=== PATIENT | male | born 1945 | race Caucasian/White ===

== ENCOUNTER 2016-07-29 17:34 | Inpatient (IN) | payer MEDICARE ==
[~2016-07-29] VITALS: Ht 174 cm; Wt 80.4 kg
[2016-07-29] MEDS ORDERED: IV NORMAL SALINE 1000ML BAG 1,000 ML IV SCH ×2 (17:48→19:12)
[2016-07-29] MEDS ORDERED: ASPIRIN 81 MG TAB.CHEW PO ONE (18:00)
--- NOTE | 2016-07-29 18:15 | PHYS DOC ---
Adult General Chief Complaint Chief Complaint: CHEST PAIN HPI HPI Patient is a 71 year old male who presents with complaint of chest pain. Patient states that his symptoms started approximately 18 hours ago in the middle of the night. Patient states that he is having substernal burning and pressure which she states feels like indigestion. Patient currently rates pain as 4 out of 10. Patient denies radiation of pain. Patient denies any nausea, shortness of breath, or diaphoresis associated with symptoms. The patient has a significant history of tobacco use and has history of hypertension. Patient follows a Dr. Velázquez for primary care. Patient presented to his office and was seen by a nurse practitioner who ordered blood work. The patient was called prior to arrival and was told that he had abnormal blood work. Per nursing report, the patient was found to have an abnormal troponin level of 0.3. Patient denies any previous history of myocardial infarction. Patient took 2 full strength aspirin after onset of symptoms at approximately 9:00 this morning. Review of Systems Review of Systems Constitutional: Denies fever or chills [] Eyes: Denies change in visual acuity, redness, or eye pain [] HENT: Denies nasal congestion or sore throat [] Respiratory: Denies cough or shortness of breath [] Cardiovascular: Chest pain, denies edema [] GI: Denies abdominal pain, nausea, vomiting, bloody stools or diarrhea [] : Denies dysuria or hematuria [] Musculoskeletal: Denies back pain or joint pain [] Integument: Denies rash or skin lesions [] Neurologic: Denies headache, focal weakness or sensory changes [] Current Medications Current Medications Current Medications Medications (Trade) Dose Ordered Sig/[facility] Start Time Stop Time Status Last Admin Dose Admin Acetaminophen (Tylenol) 650 mg PRN Q4HRS PRN 07/29/16 19:15 07/30/16 19:14 Aspirin 324 mg 324 mg 1X ONCE 07/29/16 18:00 07/29/16 18:19 DC Fentanyl Citrate 50 mcg 50 mcg PRN Q2HR PRN 07/29/16 19:15 07/30/16 19:14 Heparin Sodium (Porcine) 2000 unit 2,000 unit PRN Q6HRS PRN 07/29/16 19:15 Heparin Sodium (Porcine) 4000 unit 4,000 unit 1X ONCE 07/29/16 19:15 07/29/16 19:21 DC 07/29/16 19:34 4,000 UNIT Heparin Sodium/ Dextrose 500 ml @ 0 mls/hr CONT PRN 07/29/16 19:15 07/29/16 19:37 0 MLS/HR Nitroglycerin/ Dextrose (Nitroglycerin Drip) 250 ml @ 0 mls/hr CONT PRN 07/29/16 19:15 07/29/16 19:39 1.5 MLS/HR Ondansetron HCl (Zofran) 4 mg PRN Q8HRS PRN 07/29/16 19:15 07/30/16 19:14 Sodium Chloride (Iv Sodium Chloride 0.9% 1000ml Bag) 1,000 ml @ 125 mls/hr Q8H 07/29/16 19:12 07/30/16 19:11 Tirofiban/Sodium Chloride (Aggrastat 12.5 Mg/250 ml Premix) 250 ml @ 0 mls/hr CONT PRN 07/29/16 19:00 Allergies Allergies Allergies Coded Allergies Type Severity Reaction Last Updated Verified No Known Drug Allergies 07/29/16 No Physical Exam Physical Exam Constitutional: Alert, afebrile, no acute distress. [] HENT: Normocephalic, atraumatic, bilateral external ears normal, oropharynx moist, no oral exudates, nose normal. [] Eyes: PERRLA, EOMI, conjunctiva normal, no discharge. [] Neck: Normal range of motion, no tenderness, supple, no stridor. [] Cardiovascular:Heart rate regular rhythm, no murmur [] Lungs & Thorax: Bilateral breath sounds clear to auscultation [] Abdomen: Bowel sounds normal, soft, no tenderness, no masses, no pulsatile masses. [] Skin: Warm, dry, no erythema, no rash. [] Back: No tenderness, no CVA tenderness. [] Extremities: No tenderness, no cyanosis, no clubbing, ROM intact, no edema. [] Neurologic: Alert and oriented X 3, normal motor function, normal sensory function, no focal deficits noted. [] Current Patient Data Vital Signs Vital Signs Date Time Temp Pulse Resp B/P Pulse Ox O2 Delivery O2 Flow Rate FiO2 07/29/16 17:45 98.7 55 18 164/82 98 Room Air 98.7 Lab Values Laboratory Tests Test 3/6/17 18:14 White Blood Count 12.0x10^3/uL (4.0-11.0) H Red Blood Count 4.45x10^6/uL (4.30-5.70) Hemoglobin 14.3g/dL (13.0-17.5) Hematocrit 42.8% (39.0-53.0) Mean Corpuscular Volume 96fL (79-100) Mean Corpuscular Hemoglobin 32pg (25-35) Mean Corpuscular Hemoglobin Concent 33g/dL (31-37) Red Cell Distribution Width 14.2% (11.5-14.5) Platelet Count 231x10^3/uL (140-400) Neutrophils (%) (Auto) 75% (31-73) H Lymphocytes (%) (Auto) 16% (24-48) L Monocytes (%) (Auto) 8% (0-9) Eosinophils (%) (Auto) 0% (0-3) Basophils (%) (Auto) 1% (0-3) Neutrophils # (Auto) 9.0x10^3uL (1.8-7.7) H Lymphocytes # (Auto) 1.9x10^3/uL (1.0-4.8) Monocytes # (Auto) 0.9x10^3/uL (0.0-1.1) Eosinophils # (Auto) 0.0x10^3/uL (0.0-0.7) Basophils # (Auto) 0.1x10^3/uL (0.0-0.2) Sodium Level 136mmol/L (136-145) Potassium Level 4.7mmol/L (3.5-5.1) Chloride Level 100mmol/L (98-107) Carbon Dioxide Level 26mmol/L (21-32) Anion Gap 10 (6-14) Blood Urea Nitrogen 21mg/dL (8-26) Creatinine 1.1mg/dL (0.7-1.3) Estimated GFR (Cockcroft-Gault) 66.2 Glucose Level 126mg/dL (70-99) H Calcium Level 9.6mg/dL (8.5-10.1) Magnesium Level 1.7mg/dL (1.8-2.4) L Total Bilirubin 0.4mg/dL (0.2-1.0) Direct Bilirubin 0.1mg/dL (0.0-0.2) Aspartate Amino Transferase (AST) 143U/L (15-37) H Alanine Aminotransferase (ALT) 32U/L (16-63) Alkaline Phosphatase 50U/L (46-116) Creatine Kinase 741U/L (39-308) H Creatine Kinase MB (Mass) 38.3ng/mL (0.0-3.6) H Creatine Kinase MB Relative Index 5.2% (0-4) H Troponin I Quantitative 41.668ng/mL (0.000-0.055) UC-Gis-L-Type Natriuretic Peptide 2203pg/mL (0-124) H Total Protein 7.2g/dL (6.4-8.2) Albumin 3.4g/dL (3.4-5.0) Laboratory Tests 07/29/16 18:14 Laboratory Tests 07/29/16 18:14 EKG EKG Interpreted by me: Heart rate 50, sinus rate cardiac, normal intervals, normal axis, T-wave inversions in the inferior leads and in V5 and V6, no acute ST elevations or depressions. [] Radiology/Procedures Radiology/Procedures One view AP chest x-ray interpreted by me: No infiltrates, no effusions, normal cardiac silhouette [] Course & Med Decision Making Course & Med Decision Making Pertinent Labs and Imaging studies reviewed. (See chart for details) Patient found to have a significantly elevated troponin level of 41. The patient has suffered a non-ST elevation myocardial infarction. I consult to Dr. Devi of cardiology who recommended that the patient be started on IV infusions of Aggrastat, heparin, and nitroglycerin which was initiated in the emergency department. The patient will be admitted to ICU for further care. I spoke with Dr. Browning who is on-call for Dr. Velázquez and he accepted care patient in hospital. Critical care time excluding procedures: 45 minutes Dragon Disclaimer Dragon Disclaimer This electronic medical record was generated, in whole or in part, using a voice recognition dictation system. Departure Departure Impression: Primary Impression: NSTEMI (non-ST elevated myocardial infarction) Disposition: 09 ADMITTED INPATIENT Admitting Physician: Brandon Velázquez Condition: GUARDED RENO MACKENZIE MD Jul 29, 2016 18:14
[2016-07-29 18:25] LABS: BASO # 0.1 x10^3/uL (0.0-0.2); BASO % 1 % (0-3); EOS % 0 % (0-3); HEMATOCRIT 42.8 % (39.0-53.0); HEMOGLOBIN 14.3 g/dL (13.0-17.5); LYMPH # 1.9 x10^3/uL (1.0-4.8); LYMPH % 16 % (24-48); MEAN CORPUSCULAR HEMOGLOBIN 32 pg (25-35); MEAN CORPUSCULAR HGB CONC 33 g/dL (31-37); MEAN CORPUSCULAR VOLUME 96 fL (79-100); MONO % 8 % (0-9); NEUT % 75 % (31-73); PLATELET COUNT 231 x10^3/uL (140-400); RED BLOOD COUNT 4.45 x10^6/uL (4.30-5.70); RED CELL DISTRIBUTION WIDTH 14.2 % (11.5-14.5)
--- NOTE | 2016-07-29 18:31 | EKG ---
[facility] [address] [place] [address] Test Date: 2016-07-29 Test Time: 17:43:46 Pat Name: CHARMAINE ISRAEL Department: Room: Gender: M [employer] Operator: : [id number] Requested By: RENO MACKENZIE Order Number: [id number] Reading MD: Measurements Intervals Unity Rate: 50 P: [place]: QRS: 9 QRSD: 94 T: -63 QT: 478 QTc: 439 Interpretive Statements IRREGULAR RHYTHM, NO P-WAVE FOUND QRS(T) CONTOUR ABNORMALITY CONSIDER ANTEROSEPTAL MYOCARDIAL DAMAGE CONSISTENT WITH INFERIOR INFARCT AGE UNDETERMINED T ABNORMALITY IN ANTEROLATERAL LEADS RI6.01 Unconfirmed report No previous ECG available for comparison
[2016-07-29 18:43] LABS: CALCIUM 9.6 mg/dL (8.5-10.1); CREATININE 1.1 mg/dL (0.7-1.3); GFR 66.2; POTASSIUM 4.7 mmol/L (3.5-5.1)
[2016-07-29 18:50] LABS: ALBUMIN 3.4 g/dL (3.4-5.0); DIRECT BILIRUBIN 0.1 mg/dL (0.0-0.2); MAGNESIUM 1.7 mg/dL (1.8-2.4); TOTAL BILIRUBIN 0.4 mg/dL (0.2-1.0); TOTAL PROTEIN 7.2 g/dL (6.4-8.2)
[2016-07-29] MEDS ORDERED: TIROFIBAN 5MG -0.9% NS 100 ML IV ONE (19:00)
[2016-07-29] MEDS ORDERED: TIROFIBAN 12.5MG -0.9% NS 250 ML IV PRN (19:00)
[2016-07-29 19:07] LABS: CKMB INDEX 5.2 % (0-4); CKMB MASS 38.3 ng/mL (0.0-3.6)
[2016-07-29] MEDS ORDERED: NITROGLYCERIN PREMIX 250 ML IV PRN (19:15)
[2016-07-29] MEDS ORDERED: HEPARIN 25,000UTS/500ML PREMIX 500 ML IV PRN (19:15)
[2016-07-29] MEDS ORDERED: HEPARIN for IV BOLUS 10,000 UNIT/10 ML VIAL. IV ONE (19:15)
[2016-07-29] MEDS ORDERED: FENTANYL PF 100 MCG/2 ML VIAL. IV PRN (19:15)
[2016-07-29] MEDS ORDERED: HEPARIN for IV BOLUS 10,000 UNIT/10 ML VIAL. IV PRN (19:15)
[2016-07-29] MEDS ORDERED: ACETAMINOPHEN 325 MG TABLET. PO PRN (19:15)
[2016-07-29] MEDS ORDERED: ONDANSETRON PF 4 MG/2 ML VIAL. IV PRN (19:15)
--- NOTE | 2016-07-29 21:38 | ACF ---
Admission Forms Criteria MYOCARDIAL INFARCTION Clinical Indications for Admission to Inpatient Care (Place 'X' for any and all applicable criteria): Admission is indicated for ANY ONE of the following (1)(2)(3)(4): [X]I. Acute HI [ ]II. Contraindications and/or Inappropriate clinical situations for Observational Care in patients with Myocardial Infarction, when ANY ONE of the following is required: [ ]a) Patient with High risk of cardiac embolism (e.g, patients with previous cardiac embolism, LVEF < 40%, age >75 and patients with prosthetic valve) 18 [ ]b) Patient with Moderate risk including DM patient, CAD and patient aged 65-75 18 [ ]c) Patient with any change in cardiac biomarker especially troponin should be managed as high risk in an inpatient setting 19 [ ]d) Physician judgement irrespective of ECG and other diagnostic findings 20 [ ]III.General contraindications and/or Inappropriate clinical situations for Observational Care in patients with Myocardial Infarction, when ANY ONE of the following is required: [ ]a) Prediction of prolongation of LOS based on ANY ONE of the following may be considered as a contraindication for observational care 2, 3, 4, 5, 6, 7, 8, 9, 10, 11 [ ]i) Age > 65 yrs. [ ]ii) Patient arriving by ambulance [ ]iii) Patient with high acuity [ ]iv) Patient requiring vital sign monitoring [ ]v) Patient on IV medication [ ]b) Systolic blood pressures 180mmHg 3,12 [ ]c) Patient with altered mental status including delirium and other alteration of consciousness, (3) [ ]d) Patient whose discharge disposition will be to a [facility]ci home or rehabilitation home should not be managed in Emergency Department Observation Unit. CMS rule requires 3 days hospital stay before such placement. 3,13 [ ]e) Patient with failure to thrive due to broad array of etiologies 3 ,16,17 [ ]f) Inability to ambulate 3,14 Extended stay beyond goal length of stay may be needed for (1)(18)(20)(24)(25): [ ]a) Hemodynamic instability, persisting symptoms after intensive medical management, or recurring severe, prolonged symptoms [ ]b) Intravascular procedural complications such as acute vessel closure, stent thrombosis, stent malposition, or vessel dissection (26)(27)(28) [ ]c) Extravascular procedural complications such as retroperitoneal hematoma , pericardial effusion, or cardiac tamponade [ ]d) Entry site complications causing bleeding, hematoma or distal ischemia and requiring ongoing monitoring, surgical repair or surgical thrombectomy(29) [ ]e) Dangerous arrhythmia [ ]f) Complicated percutaneous coronary intervention (e.g., unsuccessful percutaneous coronary intervention or percutaneous coronary intervention of non- viejas vessel) [ ]g) Urgent or emergent surgery for complications of HI (e.g., ventricular rupture, valvular insufficiency) [ ]h) Surgical revascularization via coronary artery bypass graft [ ]i) Heart failure (e.g., pulmonary edema) [ ]j) Unstable pulmonary comorbidities, including COPD or pneumonia (31) [ ]k) Acute renal failure The original [employer] content created by [employer] has been revised. The portions of the content which have been revised are identified through the use of italic text or in bold, and [facility] [employer] has neither reviewed nor approved the modified material. All other unmodified content is copyright [facility] Please see references footnoted in the original [facility] edition 2016 Admission Criteria Met?: Yes SAMANTHA TABARES Jul 29, 2016 21:38
[2016-07-29 22:00] VITALS: BP 140/71
[2016-07-29 22:15] VITALS: BP 137/76
[2016-07-29 22:30] VITALS: BP 133/72
[2016-07-29 22:45] VITALS: BP 132/70
[2016-07-29 23:00] VITALS: BP 140/70
[2016-07-29 23:30] VITALS: BP 148/78
[2016-07-30] VITALS (22 sets, daily range): BP systolic 103–148; BP diastolic 30–79
[2016-07-30] MEDS ORDERED: IOHEXOL 300 MG/ML 100ML VIAL. ONE ×4 (06:44→09:18)
[2016-07-30] MEDS ORDERED: LIDOCAINE 2% 20 ML VIAL. ONE ×2 (06:45→06:47)
[2016-07-30] MEDS ORDERED: HEPARIN for ARTERIAL LINE 0 ML ONE (06:45)
[2016-07-30] MEDS ORDERED: VERAPAMIL 5 MG/2 ML VIAL. ONE (07:27)
[2016-07-30] MEDS ORDERED: NITROGLYCERIN 200 MCG/2 ML SYRINGE FOR CATH/VASC LAB. ONE (07:27)
[2016-07-30] MEDS ORDERED: MIDAZOLAM HCL/PF 5 MG/5 ML VIAL ONE (07:28)
[2016-07-30] MEDS ORDERED: FENTANYL PF 100 MCG/2 ML VIAL. ONE ×2 (07:28→09:37)
[2016-07-30] MEDS ORDERED: HEPARIN for IV BOLUS 10,000 UNIT/10 ML VIAL. ONE (07:28)
[2016-07-30] MEDS ORDERED: BIVALIRUDIN 250 MG VIAL IV ONE ×4 (07:52→09:45)
--- NOTE | 2016-07-30 08:05 | RAD ---
EXAM: Chest one view. HISTORY: Chest pain, hypertension. COMPARISON: None. FINDINGS: A frontal view of the chest is obtained. There are no confluent infiltrates. There is no pneumothorax or pleural effusion. The heart is not enlarged. There are atherosclerotic calcifications of the aorta. IMPRESSION: 1. No confluent infiltrates.
[2016-07-30] MEDS ORDERED: HEPARIN for IV BOLUS 10,000 UNIT/10 ML VIAL. IART ONE (08:15)
[2016-07-30] MEDS ORDERED: IOHEXOL 300 MG/ML 100ML VIAL. IART ONE (08:15)
[2016-07-30] MEDS ORDERED: VERAPAMIL 5 MG/2 ML VIAL. IART ONE (08:15)
[2016-07-30] MEDS ORDERED: CONTRAST GIVEN MC PRN (08:15)
[2016-07-30] MEDS ORDERED: FENTANYL PF 100 MCG/2 ML VIAL. IV ONE ×2 (08:15→10:15)
[2016-07-30] MEDS ORDERED: NITROGLYCERIN 200 MCG/2 ML SYRINGE FOR CATH/VASC LAB. IART ONE ×2 (08:15→10:15)
[2016-07-30] MEDS ORDERED: MIDAZOLAM HCL/PF 5 MG/5 ML VIAL IV ONE (08:15)
[2016-07-30] MEDS ORDERED: LIDOCAINE 2% 20 ML VIAL. IJ ONE (08:15)
[2016-07-30] MEDS ORDERED: LORAZEPAM 1 MG TABLET. PO PRN (09:00)
--- NOTE | 2016-07-30 09:05 | PDOC ---
Provider Note Provider Note [id number] ALYSSIA GARCÍA MD Jul 30, 2016 09:05
[2016-07-30] MEDS ORDERED: OMEP40CA5 PO (09:13)
[2016-07-30] MEDS ORDERED: ALLO100T PO (09:13)
[2016-07-30] MEDS ORDERED: LISI-334 PO (09:13)
[2016-07-30] MEDS ORDERED: METO50TA2 PO (09:13)
[2016-07-30] MEDS ORDERED: AMLO5TAB2 PO (09:13)
--- NOTE | 2016-07-30 09:34 | HP ---
ADMIT DATE: 07/30/2016 CHIEF COMPLAINT: Chest pain. HISTORY OF PRESENT ILLNESS: A 71-year-old white male, a patient of Dr. Velázquez, who was seen in Dr. Velázquez's office one to two days ago by the nurse practitioner and was having some intermittent episodes of chest pain and dyspnea. Laboratory studies apparently revealed a high troponin level, and he came to the ER and was admitted with high troponin in the ER as well. EKG could not be reviewed here but apparently showed some elevated ST segments and T-wave inversions consistent with GA. He is in the Radiographer Angiogram currently. PAST MEDICAL HISTORY: None. MEDICATIONS: No medicine notes available. ALLERGIES: No drug allergies or any prior medical knowledge available. SOCIAL HISTORY: Apparently, he is . He has been a heavy drinker and smoker since his many years ago. Otherwise unknown. FAMILY HISTORY: Unknown. REVIEW OF SYSTEMS: Unknown. OBJECTIVE: ENT: No acute changes. NECK: No bruits, masses, or nodes. LUNGS: Clear. CARDIOVASCULAR: Regular rate. No murmur. ABDOMEN: Soft, benign, and nontender. EXTREMITIES: Good pedal and radial pulses. NEUROLOGIC: Physiologic, nonfocal. ASSESSMENT: Recent myocardial infarction, heavy smoker, and heavy drinker. PLAN: Per results of cardiac catheterization. We will add lorazepam for alcohol withdrawal and multivitamin and thiamine therapy as well. ALYSSIA GARCÍA MD DR: ANT/luke JOB#: [id number] / [id number]
[2016-07-30] MEDS ORDERED: THIAMINE 100 MG in IV NORMAL SALINE 50ML 50 ML IV ONE (10:00)
[2016-07-30] MEDS ORDERED: CLOPIDOGREL BISULFATE 75 MG TABLET ONE (10:14)
[2016-07-30] MEDS ORDERED: ASPIRIN 325 MG TABLET ONE (10:14)
--- NOTE | 2016-07-30 10:26 | PDOC2 ---
CONSULT Date of Consult Date of Consult DATE: 07/30/16 TIME: 10:26 Reason for Consult Reason for Consult: Non-STEMI Referring Physician Referring Physician: Dr. Velázquez Identification/Chief Complaint Chief Complaint Chest pain Source Source: Chart review, Patient History of Present Illness Reason for Visit: 71-year-old male without any known previous cardiac history presented with retrosternal chest pressure that he described as 'heartburn/indigestion' that started 18 hours prior to presentation. Cardiac enzymes were significantly elevated consistent with non-STEMI. Patient denied any diaphoresis, shortness of breath, palpitations or syncope. Past Medical History Past Medical History Hypertension Family History Family History Coronary artery disease Social History Social History Patient admitted to smoking cigarettes but denied any drug abuse. Current Problem List Problem List Problems Medical Problems: (1) NSTEMI (non-ST elevated myocardial infarction) Status: Acute Current Medications Current Medications Current Medications Aspirin 324 mg 324 mg 1X ONCE PO ; Start 07/29/16 at 18:00; Stop 07/29/16 at 18: 19; Status DC Sodium Chloride 1,000 ml @ 100 mls/hr Q10H IV Last administered on 07/29/16 17 :30; Start 07/29/16 at 17:48; Stop 07/30/16 at 03:47; Status DC Tirofiban/Sodium Chloride 100 ml @ 1,200 mls/hr 1X ONCE IV Last administered on 07/29/16 19:43; Start 07/29/16 at 19:00; Stop 07/29/16 at 19:04; Status DC Tirofiban/Sodium Chloride (Aggrastat 12.5 Mg/250 ml Premix) 250 ml @ 0 mls/hr CONT PRN IV PER PROTOCOL Last administered on 07/30/16 00:14; Start 07/29/16 at 19:00 Heparin Sodium (Porcine) 4000 unit 4,000 unit 1X ONCE IV Last administered on 07/29/16 19:34; Start 07/29/16 at 19:15; Stop 07/29/16 at 19:21; Status DC Heparin Sodium/ Dextrose 500 ml @ 0 mls/hr CONT PRN IV SEE I/O RECORD Last administered on 07/29/16 19:37; Start 07/29/16 at 19:15 Heparin Sodium (Porcine) 2000 unit 2,000 unit PRN Q6HRS PRN IV FOR UFH LEVEL LESS THAN 0.2; Start 07/29/16 at 19:15 Nitroglycerin/ Dextrose (Nitroglycerin Drip) 250 ml @ 0 mls/hr CONT PRN IV SEE I/O RECORD Last administered on 07/29/16 19:39; Start 07/29/16 at 19:15 Ondansetron HCl (Zofran) 4 mg PRN Q8HRS PRN IV NAUSEA/VOMITING; Start 07/29/16 at 19:15; Stop 07/30/16 at 19:14 Fentanyl Citrate 50 mcg 50 mcg PRN Q2HR PRN IV PAIN Last administered on 03:43; Start 07/29/16 at 19:15; Stop 07/30/16 at 19:14 Sodium Chloride (Iv Sodium Chloride 0.9% 1000ml Bag) 1,000 ml @ 125 mls/hr Q8H IV Last administered on 07/29/16 04:00; Start 07/29/16 at 19:12; Stop 07/30/16 at 19:11 Acetaminophen (Tylenol) 650 mg PRN Q4HRS PRN PO FEVER; Start 07/29/16 at 19:15; Stop 07/30/16 at 19:14 Iohexol 100 ml 100 ml STK-MED ONCE .ROUTE ; Start 07/30/16 at 06:44; Stop at 06:45; Status DC Heparin Sodium/ Sodium Chloride 0 ml @ As Directed STK-MED ONCE .ROUTE ; Start 07/30/16 at 06:45; Stop 07/30/16 at 06:46; Status DC Lidocaine HCl 20 ml STK-MED ONCE .ROUTE ; Start 07/30/16 at 06:45; Stop 07/30/16 at 06:46; Status DC Lidocaine HCl 20 ml 20 ml STK-MED ONCE .ROUTE ; Start 07/30/16 at 06:47; Stop 07/30/16 at 06:48; Status DC Heparin Sodium/ Sodium Chloride 1,000 ml @ As Directed STK-MED ONCE .ROUTE ; Start 07/30/16 at 06:47; Stop 07/30/16 at 06:48; Status DC Iohexol (Omnipaque 300 Mg/ml) 100 ml STK-MED ONCE .ROUTE ; Start 07/30/16 at 06: 47; Stop 07/30/16 at 06:48; Status DC Nitroglycerin (Nitroglycerin) 200 mcg STK-MED ONCE .ROUTE ; Start 07/30/16 at 07: 27; Stop 07/30/16 at 07:28; Status DC Verapamil HCl (Verapamil) 5 mg STK-MED ONCE .ROUTE ; Start 07/30/16 at 07:27; Stop 07/30/16 at 07:28; Status DC Heparin Sodium (Porcine) 10,000 unit STK-MED ONCE .ROUTE ; Start 07/30/16 at 07: 28; Stop 07/30/16 at 07:29; Status DC Fentanyl Citrate (Fentanyl 2ml Vial) 100 mcg STK-MED ONCE .ROUTE ; Start at 07:28; Stop 07/30/16 at 07:29; Status DC Midazolam HCl (Versed) 5 mg STK-MED ONCE .ROUTE ; Start 07/30/16 at 07:28; Stop 07/30/16 at 07:29; Status DC Bivalirudin (Angiomax) 250 mg STK-MED ONCE IV ; Start 07/30/16 at 07:52; Stop 07/30/16 at 07:53; Status DC Iohexol (Omnipaque 300 Mg/ml) 100 ml STK-MED ONCE .ROUTE ; Start 07/30/16 at 08: 01; Stop 07/30/16 at 08:02; Status DC Nitroglycerin (Nitroglycerin) 200 mcg 1X ONCE IART Last administered on 08:34; Start 07/30/16 at 08:15; Stop 07/30/16 at 08:16; Status DC Verapamil HCl (Verapamil) 2.5 mg 1X ONCE IART Last administered on 07/30/16 08 :15; Start 07/30/16 at 08:15; Stop 07/30/16 at 08:16; Status DC Heparin Sodium (Porcine) 2,500 unit 1X ONCE IART Last administered on 07:43; Start 07/30/16 at 08:15; Stop 07/30/16 at 08:16; Status DC Heparin Sodium/ Sodium Chloride 1,000 unit 1X ONCE IART Last administered on 08:35; Start 07/30/16 at 08:15; Stop 07/30/16 at 08:16; Status DC Midazolam HCl (Versed) 5 mg 1X ONCE IV Last administered on 07/30/16 08:35; Start 07/30/16 at 08:15; Stop 07/30/16 at 08:16; Status DC Fentanyl Citrate (Fentanyl 2ml Vial) 100 mcg 1X ONCE IV Last administered on 08:35; Start 07/30/16 at 08:15; Stop 07/30/16 at 08:16; Status DC Iohexol (Omnipaque 300 Mg/ml) 100 ml 1X ONCE IART Last administered on 10:06; Start 07/30/16 at 08:15; Stop 07/30/16 at 08:16; Status DC Bivalirudin (Angiomax) 250 mg 1X ONCE IV Last administered on 07/30/16 07:55; Start 07/30/16 at 08:15; Stop 07/30/16 at 08:16; Status DC Lidocaine HCl 20 ml 1X ONCE IJ Last administered on 07/30/16 08:34; Start 07/30 at 08:15; Stop 07/30/16 at 08:16; Status DC Info (Do NOT chart on this entry -- for MONITORING) 1 each PRN DAILY PRN MC SEE COMMENTS; Start 07/30/16 at 08:15; Stop 08/01/16 at 08:14 Lorazepam 1 mg 1 mg PRN Q4HRS PRN PO ANXIETY / AGITATION; Start 07/30/16 at 09: 00 Thiamine HCl/ Sodium Chloride (Iv Sodium Chloride 0.9% 50ml) 51 ml @ 102 mls/ hr 1X ONCE IV ; Start 07/30/16 at 10:00; Stop 07/30/16 at 10:29 Multivitamins (Thera M Plus) 1 tab DAILY PO ; Start 07/30/16 at 18:00 Iohexol (Omnipaque 300 Mg/ml) 100 ml STK-MED ONCE .ROUTE ; Start 07/30/16 at 09: 18; Stop 07/30/16 at 09:19; Status DC Bivalirudin (Angiomax) 250 mg STK-MED ONCE IV ; Start 07/30/16 at 09:28; Stop 07/30/16 at 09:29; Status DC Bivalirudin (Angiomax) 250 mg 1X ONCE IV Last administered on 07/30/16 09:30; Start 07/30/16 at 09:45; Stop 07/30/16 at 09:46; Status DC Fentanyl Citrate (Fentanyl 2ml Vial) 100 mcg STK-MED ONCE .ROUTE ; Start at 09:37; Stop 07/30/16 at 09:38; Status DC Nitroglycerin (Nitroglycerin) 200 mcg 1X ONCE IART Last administered on 10:18; Start 07/30/16 at 10:15; Stop 07/30/16 at 10:16; Status DC Fentanyl Citrate (Fentanyl 2ml Vial) 25 mcg 1X ONCE IV Last administered on 10:19; Start 07/30/16 at 10:15; Stop 07/30/16 at 10:16; Status DC Aspirin (David Aspirin) 325 mg STK-MED ONCE .ROUTE ; Start 07/30/16 at 10:14; Stop 07/30/16 at 10:15; Status DC Clopidogrel Bisulfate (Plavix) 75 mg STK-MED ONCE .ROUTE ; Start 07/30/16 at 10: 14; Stop 07/30/16 at 10:15; Status DC Clopidogrel Bisulfate (Plavix) 600 mg 1X ONCE PO Last administered on 10:20; Start 07/30/16 at 10:30; Stop 07/30/16 at 10:31 Aspirin (Spiral [employer]etics Aspirin) 325 mg 1X ONCE PO Last administered on 07/30/16 10:19 ; Start 07/30/16 at 10:30; Stop 07/30/16 at 10:31 Active Scripts Active Reported Lisinopril 20 Mg Tablet 1 Tab PO DAILY Amlodipine Besylate 5 Mg Tablet 5 Mg PO DAILY Allopurinol 100 Mg Tablet 1 Tab PO DAILY Omeprazole 40 Mg Capsule. 1 Cap PO DAILY Metoprolol Tartrate 50 Mg Tablet 1 Tab PO BID Allergies Allergies: Coded Allergies: No Known Drug Allergies (Unverified , 07/29/16) ROS PSYCHOLOGICAL ROS: No: Hallucinations Eyes: No Loss of vision HEENT: No: Epistaxis Cardiovascular: yes Chest Pain Gastrointestinal: No Nausea, No Vomiting Genitourinary: No Hematuria Neurological: No Seizures Skin: No Rash Physical Exam General: Alert, No acute distress HEENT: Atraumatic, PERRLA Lungs: Clear to auscultation Heart: Regular rate Abdomen: Soft, No tenderness Extremities: No edema Psych/Mental Status: Mood NL Vitals VITALS Vital Signs Date Time Temp Pulse Resp B/P Pulse Ox O2 Delivery O2 Flow Rate FiO2 07/30/16 10:19 16 96 Room Air 07/30/16 10:09 57 07/30/16 08:35 2.0 07/30/16 08:15 132/81 07/30/16 04:00 98.7 98.7 Labs Labs Laboratory Tests Test 07/29/16 18:14 07/30/16 01:07 07/30/16 01:30 White Blood Count 12.0x10^3/uL (4.0-11.0) Red Blood Count 4.45x10^6/uL (4.30-5.70) Hemoglobin 14.3g/dL (13.0-17.5) Hematocrit 42.8% (39.0-53.0) Mean Corpuscular Volume 96fL (79-100) Mean Corpuscular Hemoglobin 32pg (25-35) Mean Corpuscular Hemoglobin Concent 33g/dL (31-37) Red Cell Distribution Width 14.2% (11.5-14.5) Platelet Count 231x10^3/uL (140-400) Neutrophils (%) (Auto) 75% (31-73) Lymphocytes (%) (Auto) 16% (24-48) Monocytes (%) (Auto) 8% (0-9) Eosinophils (%) (Auto) 0% (0-3) Basophils (%) (Auto) 1% (0-3) Neutrophils # (Auto) 9.0x10^3uL (1.8-7.7) Lymphocytes # (Auto) 1.9x10^3/uL (1.0-4.8) Monocytes # (Auto) 0.9x10^3/uL (0.0-1.1) Eosinophils # (Auto) 0.0x10^3/uL (0.0-0.7) Basophils # (Auto) 0.1x10^3/uL (0.0-0.2) Sodium Level 136mmol/L (136-145) Potassium Level 4.7mmol/L (3.5-5.1) Chloride Level 100mmol/L (98-107) Carbon Dioxide Level 26mmol/L (21-32) Anion Gap 10 (6-14) Blood Urea Nitrogen 21mg/dL (8-26) Creatinine 1.1mg/dL (0.7-1.3) Estimated GFR (Cockcroft-Gault) 66.2 Glucose Level 126mg/dL (70-99) Calcium Level 9.6mg/dL (8.5-10.1) Magnesium Level 1.7mg/dL (1.8-2.4) Total Bilirubin 0.4mg/dL (0.2-1.0) Direct Bilirubin 0.1mg/dL (0.0-0.2) Aspartate Amino Transf (AST/SGOT) 143U/L (15-37) Alanine Aminotransferase (ALT/SGPT) 32U/L (16-63) Alkaline Phosphatase 50U/L (46-116) Creatine Kinase 741U/L (39-308) Creatine Kinase MB (Mass) 38.3ng/mL (0.0-3.6) Creatine Kinase MB Relative Index 5.2% (0-4) Troponin I Quantitative 41.668ng/mL (0.000-0.055) 50.037ng/mL (0.000-0.055) QB-Rhm-T-Type Natriuretic Peptide 2203pg/mL (0-124) Total Protein 7.2g/dL (6.4-8.2) Albumin 3.4g/dL (3.4-5.0) Heparin Anti-Xa Act, Unfractionated 0.39IU/mL (0.30-0.70) Laboratory Tests Test 07/29/16 18:14 07/30/16 01:07 07/30/16 01:30 White Blood Count 12.0x10^3/uL (4.0-11.0) Red Blood Count 4.45x10^6/uL (4.30-5.70) Hemoglobin 14.3g/dL (13.0-17.5) Hematocrit 42.8% (39.0-53.0) Mean Corpuscular Volume 96fL (79-100) Mean Corpuscular Hemoglobin 32pg (25-35) Mean Corpuscular Hemoglobin Concent 33g/dL (31-37) Red Cell Distribution Width 14.2% (11.5-14.5) Platelet Count 231x10^3/uL (140-400) Neutrophils (%) (Auto) 75% (31-73) Lymphocytes (%) (Auto) 16% (24-48) Monocytes (%) (Auto) 8% (0-9) Eosinophils (%) (Auto) 0% (0-3) Basophils (%) (Auto) 1% (0-3) Neutrophils # (Auto) 9.0x10^3uL (1.8-7.7) Lymphocytes # (Auto) 1.9x10^3/uL (1.0-4.8) Monocytes # (Auto) 0.9x10^3/uL (0.0-1.1) Eosinophils # (Auto) 0.0x10^3/uL (0.0-0.7) Basophils # (Auto) 0.1x10^3/uL (0.0-0.2) Sodium Level 136mmol/L (136-145) Potassium Level 4.7mmol/L (3.5-5.1) Chloride Level 100mmol/L (98-107) Carbon Dioxide Level 26mmol/L (21-32) Anion Gap 10 (6-14) Blood Urea Nitrogen 21mg/dL (8-26) Creatinine 1.1mg/dL (0.7-1.3) Estimated GFR (Cockcroft-Gault) 66.2 Glucose Level 126mg/dL (70-99) Calcium Level 9.6mg/dL (8.5-10.1) Magnesium Level 1.7mg/dL (1.8-2.4) Total Bilirubin 0.4mg/dL (0.2-1.0) Direct Bilirubin 0.1mg/dL (0.0-0.2) Aspartate Amino Transf (AST/SGOT) 143U/L (15-37) Alanine Aminotransferase (ALT/SGPT) 32U/L (16-63) Alkaline Phosphatase 50U/L (46-116) Creatine Kinase 741U/L (39-308) Creatine Kinase MB (Mass) 38.3ng/mL (0.0-3.6) Creatine Kinase MB Relative Index 5.2% (0-4) Troponin I Quantitative 41.668ng/mL (0.000-0.055) 50.037ng/mL (0.000-0.055) ZC-Ntq-I-Type Natriuretic Peptide 2203pg/mL (0-124) Total Protein 7.2g/dL (6.4-8.2) Albumin 3.4g/dL (3.4-5.0) Heparin Anti-Xa Act, Unfractionated 0.39IU/mL (0.30-0.70) Assessment/Plan Assessment/Plan 1. Acute non-ST elevation myocardial infarction: EKG without any ST elevations. Patient stated that his chest pain has significantly improved since onset. Start aspirin and beta blockers. Start heparin and aggrastat infusions per protocol. Plan for cardiac catheterization and possible angioplasty. Risks and benefits were explained. Check fasting lipid profile 2. Hypertension: Resume home medications 3. Tobacco abuse: Advised smoking cessation Thank you for the consultation TIM KINNEY MD Jul 30, 2016 10:26
[2016-07-30] MEDS ORDERED: ACETAMINOPHEN 325 MG TABLET. PO PRN (10:30)
[2016-07-30] MEDS ORDERED: CLOPIDOGREL BISULFATE 75 MG TABLET PO ONE (10:30)
[2016-07-30] MEDS ORDERED: NITROGLYCERIN SUBLINGUAL 0.4 MG BOTTLE OF 25. SL PRN (10:30)
[2016-07-30] MEDS ORDERED: ASPIRIN 325 MG TABLET PO ONE (10:30)
[2016-07-30 12:32] LABS: BASO # 0.1 x10^3/uL (0.0-0.2); BASO % 1 % (0-3); EOS % 0 % (0-3); HEMATOCRIT 37.7 % (39.0-53.0); HEMOGLOBIN 12.6 g/dL (13.0-17.5); LYMPH # 1.1 x10^3/uL (1.0-4.8); LYMPH % 10 % (24-48); MEAN CORPUSCULAR HEMOGLOBIN 32 pg (25-35); MEAN CORPUSCULAR HGB CONC 34 g/dL (31-37); MEAN CORPUSCULAR VOLUME 96 fL (79-100); MONO % 8 % (0-9); NEUT % 81 % (31-73); PLATELET COUNT 184 x10^3/uL (140-400); RED BLOOD COUNT 3.94 x10^6/uL (4.30-5.70); RED CELL DISTRIBUTION WIDTH 14.2 % (11.5-14.5); WHITE BLOOD COUNT 11.5 x10^3/uL (4.0-11.0)
--- NOTE | 2016-07-30 12:32 | CARD ---
APPROVED REPORT Procedure(s) performed: 1. Left heart catheterization and selective coronary angiography 2. Successful complex PCI/drug eluting stent placement to chronic total occlusion involving left cir cumflex artery INDICATION The indication(s) include : non-STEMI . PROCEDURE NARRATIVE After explaining the risks, benefits and alternative options, informed consent was obtained from jorgito ent. Patient was brought to the cardiac Family Service Aide and his right wrist was prepped and draped in the us ual fashion after confirming a positive modified Von's test. Arterial access was obtained in the [facility] radial artery and 6 Cymro sheath was inserted. 6 Cymro Dylan catheter was used to perform kinza ctive angiography of the left and right coronary arteries. Left ventriculography was not performed du e to the high contrast load used during the complex percutaneous intervention. The following findings were noted. FINDINGS 1. The left main coronary artery arose from the left sinus of Valsalva, gave rise to the left anteri or descending, ramus intermedius and left circumflex arteries and did not show any significant stenos is. 2. The left anterior descending artery showed 60% stenosis involving the very distal segment of the apical wall. 3. The ramus intermedius artery was a medium caliber vessel that did not show any significant stenos is. 4. The left circumflex artery was a large and dominant vessel that showed heavily calcified chronic total occlusion involving the midsegment with distal reconstitution of second third and fourth obtuse marginal branches from collaterals. 5. The right coronary artery was a small and nondominant vessel that showed 95% stenosis in the mids egment. INTERVENTION The left main coronary artery was engaged with a 6 Cymro XB 3.5 guide catheter. Several attempts wer e made to cross the chronic total occlusion in the midsegment of the left circumflex artery using 0.0 14 inch Socialscope prowater guidewire followed by Pilot Mally 150, Quinton XT and Aide 6 with ba ckup support from 2.5 x 12 mm trek balloon were unsuccessful due to heavily calcified and tortuous oc clusion. Subsequently, with backup support from Guideliner inner catheter and Corsair microcatheter, this occlusion was crossed with a 0.014 inch [employer]Apps.comianza Pro guidewire. The stenosis was predilat ed with the 2.5 x 12 mm balloon following which he was successfully treated with overlapping 2.5 x 28 and 3.0 x 12 mm Xience Alpine drug-eluting stent. Follow-up angiography showed resolution of the chucho nosis to 0% with JUANIS-3 distal flow. The origin of a small to medium caliber obtuse marginal branch w as jailed by the stent resulting in JUANIS 1 flow. Atempts to cross the stent struts into this branch w ith the prowater guidewire were unsuccessful. However, due to the caliber and flow in the vessel, we decided to manage this medically. Patient tolerated the procedure well. Hemostasis was achieved using TR band. There were no immediate complications. Conclusion 1. Two-vessel coronary artery disease as described above 2. 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 Aspirin 325 mg daily 2. Plavix 75 mg daily for preferably one year 3. Cardiovascular risk factor modification including smoking cessation 4. Check 2-D echo to assess left ventricle systolic function.
[2016-07-30 13:02] LABS: MAGNESIUM 1.7 mg/dL (1.8-2.4)
[2016-07-30 13:16] LABS: CHOLESTEROL/HDL RATIO 2.7
[2016-07-30] MEDS: LISINOPRIL 5 MG TABLET. PO SCH (13:29)
[2016-07-30] MEDS: IV 1/2 NORMAL SALINE 1,000 ML IV SCH ×2 (13:30→21:00)
[2016-07-30] MEDS: PANTOPRAZOLE 40 MG TABLET. PO SCH (13:30)
[2016-07-30 13:42] LABS: CALCIUM 8.3 mg/dL (8.5-10.1); CREATININE 0.9 mg/dL (0.7-1.3); GFR 83.4; POTASSIUM 4.1 mmol/L (3.5-5.1)
[2016-07-30] MEDS ORDERED: MAGNESIUM SULFATE 2GM 50 ML IV ONE (14:30)
--- NOTE | 2016-07-30 16:24 | CARD ---
APPROVED REPORT EXAM: Two-dimensional and M-mode echocardiogram with Doppler and color Doppler. Other Information Quality : Average Rhythm : NSR INDICATION Non STEMI 2D DIMENSIONS Left Atrium(2D)3.3 (1.6-4.0cm)IVSd1.0 (0.7-1.1cm) Aortic Root(2D)3.3 (2.0-3.7cm)LVDd5.0 (3.9-5.9cm) LVOT Diameter2.2 (1.8-2.4cm)PWd1.0 (0.7-1.1cm) LVDs3.1 (2.5-4.0cm)SV81.5 ml LVEF(%)52.1 (>50%) Aortic Valve AoV Peak Sergei.129.6cm/sAoV VTI31.3cm AO Peak GR.6.7mmHgLVOT VTI 17.92cm AO Mean GR.4mmHgAI P 1/2 Rttm220wd Mitral Valve MV E Vyidxvwi71.6cm/sMV E Peak Gr.3mmHg MV DECEL [id number] A Hftontyv17.9cm/s MV E Mean Gr.1mmHgMV CIL24oe E/A Ratio1.5MV A Leriluhe065av MVA (PHT)5.00cm2 TDI Lateral E' P. V8.09cm/sMedial E' P. V7.40cm/s E/Lateral E'10.5E/Medial E'11.4 Tricuspid Valve TR P. Oftmsmzi846uw/sRAP UXUREAZD7ukGo TR Peak Gr.77clXzNZZO66trDj LEFT VENTRICLE The left ventricle is normal size. There is normal left ventricular wall thickness. Left ventricle sy stolic function is normal. The Ejection Fraction is 50-55%. There is normal LV segmental wall motion. The left ventricular diastolic function and filling is normal for age. RIGHT VENTRICLE The right ventricle is normal size. The right ventricular systolic function is normal. ATRIA The left atrium size is normal. The right atrium size is normal. The interatrial septum is intact wit h no evidence for an atrial septal defect or patent foramen ovale as noted on 2-D or Doppler imaging. AORTIC VALVE The aortic valve is not well visualized. The aortic valve is trileaflet. Doppler and Color Flow revea led trace aortic regurgitation. There is no significant aortic valvular stenosis. MITRAL VALVE The mitral valve is normal in structure. There is no mitral valve stenosis. Doppler and Color Flow re vealed mild mitral regurgitation. TRICUSPID VALVE The tricuspid valve is normal in structure and function. Doppler and Color Flow revealed mild tricusp id regurgitation. The PA pressure was estimated at 44 mmHg. There is no tricuspid valve stenosis. PULMONIC VALVE The pulmonic valve is not well visualized. Doppler and Color Flow revealed no pulmonic valvular regur gitation. There is no pulmonic valvular stenosis. GREAT VESSELS The aortic root is normal in size. The IVC is dilated and collapses >50% with inspiration. PERICARDIAL EFFUSION There is no evidence of significant pericardial effusion. Critical Notification Critical Value: No <Conclusion> The left ventricle is normal size. Left ventricle systolic function is normal. The Ejection Fraction is 50-55%. There is no significant aortic valvular stenosis. Doppler and Color Flow revealed trace aortic regurgitation. Doppler and Color Flow revealed mild mitral regurgitation. Doppler and Color Flow revealed mild tricuspid regurgitation. The PA pressure was estimated at 44 mmHg.
[2016-07-30] MEDS ORDERED: ANTI-COAG MONITOR BY PHARMACY. MC PRN (17:00)
[2016-07-30] MEDS: MULTIVITAMIN with MINERAL TABLET. PO SCH (17:09)
[2016-07-30] MEDS ORDERED: ATORVASTATIN CALCIUM 20 MG TABLET PO SCH (21:00)
[2016-07-31] VITALS (11 sets, daily range): BP systolic 124–154; BP diastolic 54–83
[2016-07-31 05:55] LABS: CALCIUM 8.5 mg/dL (8.5-10.1); CREATININE 0.9 mg/dL (0.7-1.3); GFR 83.4; MAGNESIUM 2.1 mg/dL (1.8-2.4); POTASSIUM 3.8 mmol/L (3.5-5.1)
[2016-07-31] MEDS ORDERED: CLOPIDOGREL BISULFATE 75 MG TABLET PO SCH (08:00)
[2016-07-31] MEDS ORDERED: ASPIRIN ENTERIC COATED 325 MG TABLET.DR. PO SCH (08:00)
[2016-07-31] MEDS: MULTIVITAMIN with MINERAL TABLET. PO SCH (08:03)
[2016-07-31] MEDS: LISINOPRIL 5 MG TABLET. PO SCH (08:04)
[2016-07-31] MEDS: PANTOPRAZOLE 40 MG TABLET. PO SCH (08:04)
--- NOTE | 2016-07-31 09:06 | PDOC ---
Provider Note Provider Note vss, no new sxs- labs ok- discussed meds- can dc when cv ok ALYSSIA GARCÍA MD Jul 31, 2016 09:06
--- NOTE | 2016-07-31 11:02 | PDOC ---
CARDIO Progress Notes Date and Time Date of Service 07/31/2016 Time of Evaluation 0940 Subjective Subjective: No Chest Pain, No shortness of breath, No Palpitations, No Dizziness, Other Vitals Vitals Vital Signs Date Time Temp Pulse Resp B/P Pulse Ox O2 Delivery O2 Flow Rate FiO2 07/31/16 08:04 68 125/69 07/31/16 08:00 Room Air 07/31/16 06:05 93 07/31/16 05:29 24 07/31/16 04:00 96.8 96.8 07/30/16 20:00 2.0 Weight Weight [ ] Input and Output Intake and Output Intake and Output 07/31/16 07:00 Intake Total 2319.7 ml Output Total 2100 ml Balance 219.7 ml Intake Oral 1100 ml IV Total 1219.7 ml Output Urine Total 2100 ml Laboratory Labs Laboratory Tests Test 07/30/16 12:15 07/31/16 05:10 White Blood Count 11.5x10^3/uL (4.0-11.0) Red Blood Count 3.94x10^6/uL (4.30-5.70) Hemoglobin 12.6g/dL (13.0-17.5) Hematocrit 37.7% (39.0-53.0) Mean Corpuscular Volume 96fL (79-100) Mean Corpuscular Hemoglobin 32pg (25-35) Mean Corpuscular Hemoglobin Concent 34g/dL (31-37) Red Cell Distribution Width 14.2% (11.5-14.5) Platelet Count 184x10^3/uL (140-400) Neutrophils (%) (Auto) 81% (31-73) Lymphocytes (%) (Auto) 10% (24-48) Monocytes (%) (Auto) 8% (0-9) Eosinophils (%) (Auto) 0% (0-3) Basophils (%) (Auto) 1% (0-3) Neutrophils # (Auto) 9.3x10^3uL (1.8-7.7) Lymphocytes # (Auto) 1.1x10^3/uL (1.0-4.8) Monocytes # (Auto) 0.9x10^3/uL (0.0-1.1) Eosinophils # (Auto) 0.0x10^3/uL (0.0-0.7) Basophils # (Auto) 0.1x10^3/uL (0.0-0.2) Sodium Level 140mmol/L (136-145) 137mmol/L (136-145) Potassium Level 4.1mmol/L (3.5-5.1) 3.8mmol/L (3.5-5.1) Chloride Level 105mmol/L (98-107) 103mmol/L (98-107) Carbon Dioxide Level 23mmol/L (21-32) 25mmol/L (21-32) Anion Gap 12 (6-14) 9 (6-14) Blood Urea Nitrogen 17mg/dL (8-26) 16mg/dL (8-26) Creatinine 0.9mg/dL (0.7-1.3) 0.9mg/dL (0.7-1.3) Estimated GFR (Cockcroft-Gault) 83.4 83.4 Glucose Level 99mg/dL (70-99) 94mg/dL (70-99) Calcium Level 8.3mg/dL (8.5-10.1) 8.5mg/dL (8.5-10.1) Magnesium Level 2.1mg/dL (1.8-2.4) Physical Exam HEENT: Neck Supple W Full Motion Chest: Symmetric LUNGS: Clear to Auscultation Heart: S1S2, RRR (SR) Other Exams ambulated around unit without difficulty Left wrist arteriotomy site intact without swelling or erythema Neurovascular status to right hand intact Assessment Assessment 1. NSTEMI: s/p PCI/HYACINTH to LCx. 2. HTN: controlled 3. Tobaccoism 4. Asymptomatic bradycardia: Slowest in the 40s. appears to be vagally induced. HR awake 60-80s. 5. Tachyarrhythmia: x1 episode, appears to be very brief AFIB with aberrancy Recommendations 1. Continue with amlodipine. 2. Pt was on metoprolol 50 mg bid and lisinopril 20 mg. Reduce to 12.5 mg bid and 5 mg daily respectively 3. Lipids are on goal. Lipitor 20 mg po qhs 4. Cardiac rehab discussed 5. DAPT with 325 mg ECASA and 75 mg of plavix 6. Dietitian and RT to see for cardiac diet and smoking cessation 7. Event monitor for 3 weeks. Follow up in office in 4 weeks 8. May DC to home per cardiac perspective and reinforced post cath instructions. 9. Establish BP diary. 10. Stop prilosec and start on protonix JIE BHATT APRN Jul 31, 2016 11:02
[2016-07-31] MEDS ORDERED: METOPROLOL TART IMMED RELEASE 25 MG TABLET PO SCH (21:00)
[2016-07-31] MEDS ORDERED: ATORVASTATIN CALCIUM 20 MG TABLET PO SCH (21:00)
[2016-08-01] MEDS ORDERED: AMLODIPINE BESYLATE 5 MG TABLET PO SCH (09:00)
--- NOTE | 2016-08-02 18:22 | DS ---
DATE OF DISCHARGE: 07/31/2016 HOSPITAL SUMMARY: A 71-year-old white male with no previous cardiac history, came in with chest pain and acute ST elevated myocardial infarction. outside laborer visit per Dr. Devi revealed that proximal LAD lesion was stented and he has done well post procedure. Laboratory studies were available on the chart for review. He was treated with antiplatelet drugs, aspirin, statin and beta blockers and is feeling better and able to be discharged after seen by Dr. Devi on 07/31/2016. FINAL DIAGNOSES: 1. Acute ST elevated myocardial infarction. 2. Coronary artery disease with left anterior descending coronary artery stenosis. OPERATIONS AND PROCEDURES: Cardiac catheterization, angioplasty and stent placement. COMPLICATIONS: None. CONSULTATIONS: Dr. Devi. DISPOSITION: Aspirin, Plavix, Lipitor and metoprolol are home meds along with continuing current meds. He apparently drinks and smokes heavily and was advised to limit or avoid those habits as they are contributing to his underlying coronary disease. Follow up as ordered. PROGNOSIS: Guarded. ALYSSIA GARCÍA MD DR: ANT/luke JOB#: [id number] / [id number]
== END 2016-07-31 11:55 | disposition home or self-care (01) | DRG 249 ==
LOC: ER 17:34 → 1 WEST ICU 19:05
PROVIDERS: ADMIT Family Medicine; ATTEND Family Medicine
PROC: 4A023N7 Measurement of Cardiac Sampling and Pressure, Left Heart, Percutaneous Approach (ICD-10-PCS; principal; 2016-07-30)
PROC: 02703EZ Dilation of Coronary Artery, One Artery with Two Intraluminal Devices, Percutaneous Approach (ICD-10-PCS; 2016-07-30)
PROC: B2111ZZ Fluoroscopy of Multiple Coronary Arteries using Low Osmolar Contrast (ICD-10-PCS; 2016-07-30)
PROC: B2151ZZ Fluoroscopy of Left Heart using Low Osmolar Contrast (ICD-10-PCS; 2016-07-30)
DX: I21.4 Non-ST elevation (NSTEMI) myocardial infarction (principal); I10 Essential (primary) hypertension; F17.210 Nicotine dependence, cigarettes, uncomplicated; I25.82 Chronic total occlusion of coronary artery; Z79.82 Long term (current) use of aspirin; Z82.49 Family history of ischemic heart disease and other diseases of the circulatory system; Z79.02 Long term (current) use of antithrombotics/antiplatelets
CPT/HCPCS: 36415; 71010; 80048; 80061; 80076; 82553; 83735; 83880; 84443; 84484; 85027; 85520; 87641; 92943; 92944; 93005; 93306; 93454; 96361; 96365; 96366; 96368; 96375; 96376; C1725; C1769; C1874; C1887; C1892; J0583; J2250; J3010; J3490; J7030; J7060; Q9967; 99285-25; J3246

== ENCOUNTER 2016-08-05 11:28 | Inpatient (IN) | payer MEDICARE ==
[~2016-08-05] VITALS: Ht 172.7 cm; Wt 81.4 kg
[~2016-08-05 11:28] MED LIST: ALLO100T PO; AMLO5TAB2 PO; LISI-334 PO; METO50TA2 PO; OMEP40CA5 PO
[2016-08-05] MEDS ORDERED: ASPIRIN 81 MG TAB.CHEW PO ONE (11:45)
--- NOTE | 2016-08-05 11:51 | EKG ---
[facility] [address] [place] [address] Test Date: 2016-08-05 Test Time: 11:43:30 Pat Name: CHARMAINE ISRAEL Department: Room: Gender: M Retail Greeting Card Merchandiser: : 1945 Requested By: SEVERINO JENSEN Order Number: [id number] Reading MD: Emma Sterling Measurements Intervals [place] Rate: 80 P: 51 CO: 170 QRS: 1 QRSD: 98 T: -36 QT: 398 QTc: 463 Interpretive Statements SINUS RHYTHM ATRIAL PREMATURE COMPLEX(ES) QRS(T) CONTOUR ABNORMALITY CONSIDER INFERIOR MYOCARDIAL DAMAGE RI6.01 Unconfirmed report No previous ECG available for comparison Electronically Signed On 08-07-2016 10:53:24 CDT by Emma Sterling
[2016-08-05 11:56] LABS: BASO # 0.1 x10^3/uL (0.0-0.2); BASO % 1 % (0-3); EOS % 1 % (0-3); HEMATOCRIT 41.1 % (39.0-53.0); HEMOGLOBIN 13.8 g/dL (13.0-17.5); LYMPH # 1.7 x10^3/uL (1.0-4.8); LYMPH % 19 % (24-48); MEAN CORPUSCULAR HEMOGLOBIN 32 pg (25-35); MEAN CORPUSCULAR HGB CONC 34 g/dL (31-37); MEAN CORPUSCULAR VOLUME 95 fL (79-100); MONO % 7 % (0-9); NEUT % 72 % (31-73); PLATELET COUNT 340 x10^3/uL (140-400); RED BLOOD COUNT 4.34 x10^6/uL (4.30-5.70); RED CELL DISTRIBUTION WIDTH 14.2 % (11.5-14.5); WHITE BLOOD COUNT 9.3 x10^3/uL (4.0-11.0)
--- NOTE | 2016-08-05 11:57 | RAD ---
Portable chest, 08/05/2016: History: Chest pain Comparison is made to a study from 07/29/2016. An external secured entrance monitor is projected over the left upper chest. The heart size is normal. There is calcific plaquing of the aorta. There is slight interstitial prominence in the lungs with Iliana B lines in the lung bases. These were not evident on the 07/29/2016 study. No consolidating infiltrate is seen. There is no evidence of pleural fluid. IMPRESSION: Low-grade interstitial edema.
[2016-08-05] MEDS ORDERED: LABETALOL 20 MG/4 ML DISP.SYRIN. IVP ONE (12:00)
[2016-08-05 12:12] LABS: CREATININE 1.1 mg/dL (0.7-1.3); GFR 66.2; POTASSIUM 4.4 mmol/L (3.5-5.1)
[2016-08-05 12:17] LABS: ALBUMIN 3.5 g/dL (3.4-5.0); DIRECT BILIRUBIN 0.1 mg/dL (0.0-0.2); TOTAL BILIRUBIN 0.6 mg/dL (0.2-1.0)
--- NOTE | 2016-08-05 12:41 | EKG ---
[facility] [address] [place] [address] Test Date: 2016-08-05 Test Time: 11:58:49 Pat Name: CHARMAINE ISRAEL Department: Room: Gender: M Neon Sign Servicer: : [id number] Requested By: LUDY WATSON Order Number: [id number] Reading MD: Emma Sterling Measurements Intervals [place] Rate: 74 P: -2 MT: 166 QRS: 2 QRSD: 98 T: -31 QT: 408 QTc: 458 Interpretive Statements SINUS RHYTHM T ABNORMALITY IN INFERIOR LEADS RI6.01 Unconfirmed report No previous ECG available for comparison Electronically Signed On 08-07-2016 10:56:35 CDT by Emma Sterling
--- NOTE | 2016-08-05 12:43 | PHYS DOC ---
Past Medical History Past Medical History: Hypertension, GA, Other Additional Past Medical Histor: Gout. Past Surgical History: Tonsillectomy, Other Additional Past Surgical Histo: CARDIAC STENT Alcohol Use: Heavy Additional Information: COUPLE SHOTS OF WISKEY DAILY Drug Use: None Adult General Chief Complaint Chief Complaint: CHEST PAIN HPI HPI 71-year-old male who previously had a heart attack approximately a week ago presents emergency Department chest pressure and shortness of breath. Started around 8:30 was watching TV. Location chest. Duration intermittent. Alleviated spontaneously. The patient is mild to moderate. Not being able to catch his breath. He currently feels better. He denies nausea vomiting diaphoresis. He denies fevers or chills. He denies cough. Review of systems is negative for abdominal pain nausea vomiting diarrhea diaphoresis. All other review of systems is negative unless otherwise noted in history of present illness. Review of Systems Review of Systems SEE ABOVE. Current Medications Current Medications Current Medications Medications (Trade) Dose Ordered Sig/Michael Start Time Stop Time Status Last Admin Dose Admin Aspirin (Children'S Aspirin) 324 mg 1X ONCE 08/05/16 11:45 08/05/16 11:46 DC 08/05/16 12:02 324 MG Labetalol HCl (Normodyne) 20 mg 1X ONCE 08/05/16 12:00 08/05/16 12:01 DC 08/05/16 12:07 20 MG Allergies Allergies Allergies Coded Allergies Type Severity Reaction Last Updated Verified No Known Drug Allergies 07/29/16 No Physical Exam Physical Exam Constitutional: Well developed, well nourished, no acute distress, non-toxic appearance. HENT: Normocephalic, atraumatic, bilateral external ears normal, oropharynx moist, no oral exudates, nose normal. [] Eyes: PERRLA, EOMI, conjunctiva normal, no discharge. [] Neck: Normal range of motion, no tenderness, supple, no stridor. Cardiovascular:Heart rate regular rhythm, no murmur [] Lungs & Thorax: Bilateral breath sounds clear to auscultation Abdomen: Bowel sounds normal, soft, no tenderness, no masses, no pulsatile masses. Skin: Warm, dry, no erythema, no rash. [] Back: No tenderness, no CVA tenderness. [] Extremities: No tenderness, no cyanosis, no clubbing, ROM intact, no edema. Neurologic: Alert and oriented X 3, normal motor function, normal sensory function, no focal deficits noted. Psychologic: Affect normal, judgement normal, mood normal. [] Current Patient Data Vital Signs Vital Signs Date Time Temp Pulse Resp B/P Pulse Ox O2 Delivery O2 Flow Rate FiO2 08/05/16 12:07 74 190/93 08/05/16 11:40 98.2 27 93 Room Air 98.2 Lab Values Laboratory Tests Test 08/05/16 11:40 White Blood Count 9.3x10^3/uL (4.0-11.0) Red Blood Count 4.34x10^6/uL (4.30-5.70) Hemoglobin 13.8g/dL (13.0-17.5) Hematocrit 41.1% (39.0-53.0) Mean Corpuscular Volume 95fL (79-100) Mean Corpuscular Hemoglobin 32pg (25-35) Mean Corpuscular Hemoglobin Concent 34g/dL (31-37) Red Cell Distribution Width 14.2% (11.5-14.5) Platelet Count 340x10^3/uL (140-400) Neutrophils (%) (Auto) 72% (31-73) Lymphocytes (%) (Auto) 19% (24-48) L Monocytes (%) (Auto) 7% (0-9) Eosinophils (%) (Auto) 1% (0-3) Basophils (%) (Auto) 1% (0-3) Neutrophils # (Auto) 6.7x10^3uL (1.8-7.7) Lymphocytes # (Auto) 1.7x10^3/uL (1.0-4.8) Monocytes # (Auto) 0.7x10^3/uL (0.0-1.1) Eosinophils # (Auto) 0.1x10^3/uL (0.0-0.7) Basophils # (Auto) 0.1x10^3/uL (0.0-0.2) Sodium Level 142mmol/L (136-145) Potassium Level 4.4mmol/L (3.5-5.1) Chloride Level 104mmol/L (98-107) Carbon Dioxide Level 27mmol/L (21-32) Anion Gap 11 (6-14) Blood Urea Nitrogen 22mg/dL (8-26) Creatinine 1.1mg/dL (0.7-1.3) Estimated GFR (Cockcroft-Gault) 66.2 Glucose Level 91mg/dL (70-99) Calcium Level 9.0mg/dL (8.5-10.1) Total Bilirubin 0.6mg/dL (0.2-1.0) Direct Bilirubin 0.1mg/dL (0.0-0.2) Aspartate Amino Transferase (AST) 21U/L (15-37) Alanine Aminotransferase (ALT) 29U/L (16-63) Alkaline Phosphatase 66U/L (46-116) Troponin I Quantitative 1.791ng/mL (0.000-0.055) GW-Osw-J-Type Natriuretic Peptide 1839pg/mL (0-124) H Total Protein 8.0g/dL (6.4-8.2) Albumin 3.5g/dL (3.4-5.0) Lipase 252U/L (73-393) Laboratory Tests 08/05/16 11:40 Laboratory Tests 08/05/16 11:40 EKG EKG [] Radiology/Procedures Radiology/Procedures [] Course & Med Decision Making Course & Med Decision Making Pertinent Labs and Imaging studies reviewed. (See chart for details) [] 71-year-old male presenting to the emergency department today with shortness of breath. He previously had a heart attack this last week. Vital signs afebrile normal heart rate. Mildly tachypneic. Hypertensive on arrival. Otherwise mildly low saturation. Physical exam was largely unremarkable. EKG performed 2. EKG shows mild increased amplitude of the T waves in the anterior lateral leads. No evolving changes. Chest x-ray shows mild edema. Otherwise blood work sent which shows positive troponin. ProBNP elevated as well. Patient was given aspirin. I discussed the case with our cardiology team juice noe. She recommends not giving heparin. I asked her to give Dr. Velasquez what his recomendations are. I discussed the case with Dr. Adams. The patient was then admitted to our hospital for further evaluation workup and care. Cardiology consult placed. Dragon Disclaimer Dragon Disclaimer This electronic medical record was generated, in whole or in part, using a voice recognition dictation system. Departure Departure Impression: Primary Impression: NSTEMI (non-ST elevated myocardial infarction) Disposition: 09 ADMITTED INPATIENT Admitting Physician: Thiago Velázquez Condition: STABLE Referrals: THIAGO VELÁZQUEZ MD (PCP) SEVERINO JENSEN MD Aug 05, 2016 12:42
[2016-08-05] MEDS ORDERED: ONDANSETRON PF 4 MG/2 ML VIAL. IV PRN (12:45)
[2016-08-05] MEDS ORDERED: MORPHINE SULFATE 2 MG/ML DISP.SYRIN. IV PRN (12:45)
--- NOTE | 2016-08-05 13:44 | ACF ---
Admission Forms Criteria MYOCARDIAL INFARCTION Clinical Indications for Admission to Inpatient Care (Place 'X' for any and all applicable criteria): Admission is indicated for ANY ONE of the following (1)(2)(3)(4): [X]I. Acute RI [ ]II. Contraindications and/or Inappropriate clinical situations for Observational Care in patients with Myocardial Infarction, when ANY ONE of the following is required: [ ]a) Patient with High risk of cardiac embolism (e.g, patients with previous cardiac embolism, LVEF < 40%, age >75 and patients with prosthetic valve) 18 [ ]b) Patient with Moderate risk including DM patient, CAD and patient aged 65-75 18 [ ]c) Patient with any change in cardiac biomarker especially troponin should be managed as high risk in an inpatient setting 19 [ ]d) Physician judgement irrespective of ECG and other diagnostic findings 20 [ ]III.General contraindications and/or Inappropriate clinical situations for Observational Care in patients with Myocardial Infarction, when ANY ONE of the following is required: [ ]a) Prediction of prolongation of LOS based on ANY ONE of the following may be considered as a contraindication for observational care 2, 3, 4, 5, 6, 7, 8, 9, 10, 11 [ ]i) Age > 65 yrs. [ ]ii) Patient arriving by ambulance [ ]iii) Patient with high acuity [ ]iv) Patient requiring vital sign monitoring [ ]v) Patient on IV medication [ ]b) Systolic blood pressures 180mmHg 3,12 [ ]c) Patient with altered mental status including delirium and other alteration of consciousness, (3) [ ]d) Patient whose discharge disposition will be to a correction home or rehabilitation home should not be managed in Emergency Department Observation Unit. CMS rule requires 3 days hospital stay before such placement. 3,13 [ ]e) Patient with failure to thrive due to broad array of etiologies 3 ,16,17 [ ]f) Inability to ambulate 3,14 Extended stay beyond goal length of stay may be needed for (1)(18)(20)(24)(25): [ ]a) Hemodynamic instability, persisting symptoms after intensive medical management, or recurring severe, prolonged symptoms [ ]b) Intravascular procedural complications such as acute vessel closure, stent thrombosis, stent malposition, or vessel dissection (26)(27)(28) [ ]c) Extravascular procedural complications such as retroperitoneal hematoma , pericardial effusion, or cardiac tamponade [ ]d) Entry site complications causing bleeding, hematoma or distal ischemia and requiring ongoing monitoring, surgical repair or surgical thrombectomy(29) [ ]e) Dangerous arrhythmia [ ]f) Complicated percutaneous coronary intervention (e.g., unsuccessful percutaneous coronary intervention or percutaneous coronary intervention of non- [place] vessel) [ ]g) Urgent or emergent surgery for complications of RI (e.g., ventricular rupture, valvular insufficiency) [ ]h) Surgical revascularization via coronary artery bypass graft [ ]i) Heart failure (e.g., pulmonary edema) [ ]j) Unstable pulmonary comorbidities, including COPD or pneumonia (31) [ ]k) Acute renal failure The original [employer] content created by [employer] has been revised. The portions of the content which have been revised are identified through the use of italic text or in bold, and [facility] has neither reviewed nor approved the modified material. All other unmodified content is copyright [facility] Please see references footnoted in the original [facility] edition 2016 Admission Criteria Met?: Yes PARAS WALDEN Aug 05, 2016 13:44
--- NOTE | 2016-08-05 14:37 | PDOC2 ---
MAXIMUS OTTO MANAGING MEMBER 08/05/16 1437: CARDIAC CONSULT DATE OF CONSULT Date of Consult DATE: 08/05/16 TIME: 13:57 REASON FOR CONSULT Reason for Consult: Chest Pain REFERRING PHYSICIAN Referring Physician: Dr. Stafford SOURCE Source: Chart review, Patient HISTORY OF PRESENT ILLNESS HISTORY OF PRESENT ILLNESS This is a 71 yo male, with a h/o CAD s/p PCI/HYACINTH of a chronic total occlusion involving the left circumflex artery last week, who presented with complaints of difficulty breathing and chest tightness. Patient reports symptoms began around 8 this morning. Tightness located in his central chest. Associated with difficulty breathing. Reports it was "hard to breathe". No exacerbating factors. Called daughter, who checked BP and noted SBP in 180's. BP 200/104 upon arrival. Given Labetalol IV- BP improved; symptoms resolved. Denies any associated dizziness, palpitations, diaphoresis, or nausea/vomiting. Reports compliance with medications including DAPT. Was previously on metoprolol 50 BID and lisinopril 20mg; was reduced to metoprolol 12.5mg BID and lisinopril 5mg last week due to hypotension. PAST MEDICAL HISTORY Cardiovascular: CAD (s/p PCI/HYACINTH to LCx 07/30/16), HTN, NM Pulmonary: No pertinent hx GI: No pertinent hx Heme/Onc: No pertinent hx Hepatobiliary: No pertinent hx Psych: Addictions Rheumatologic: No pertinent hx Infectious disease: No pertinent hx ENT: No pertinent hx Renal/: No pertinent hx Endocrine: No pertinent hx Dermatology: No pertinent hx PAST SURGICAL HISTORY Past Surgical History: Other (See PMH) FAMILY HISTORY Family History: Coronary Artery Disease SOCIAL HISTORY Smoke: Quit (07/30/16- prior 2 ppd) ALCOHOL: heavy Drugs: None Lives: Alone CURRENT MEDICATIONS CURRENT MEDICATIONS Current Medications Medications (Trade) Dose Ordered Sig/Michael Route PRN Reason Start Time Stop Time Status Last Admin Dose Admin Aspirin (Children'S Aspirin) 324 mg 1X ONCE PO 08/05/16 11:45 08/05/16 11:46 DC 08/05/16 12:02 Labetalol HCl (Normodyne) 20 mg 1X ONCE IVP 08/05/16 12:00 08/05/16 12:01 DC 08/05/16 12:07 ALLERGIES ALLERGIES: Coded Allergies: No Known Drug Allergies (Unverified , 07/29/16) ROS Review of System 14 point ROS conducted with pertinent positives noted above in HPI. PHYSICAL EXAM General: Alert, Oriented X3, Cooperative, No acute distress HEENT: Atraumatic, Mucous membr. moist/pink Lungs: Clear to auscultation, Normal air movement Heart: Regular rate, Normal S1, Normal S2, Other (2/6 systolic murmur ) Abdomen: Soft, No tenderness Extremities: No edema, Normal pulses Skin: No significant lesion Neuro: Normal speech, Sensation intact Psych/Mental Status: Mental status NL, Mood NL MUSCULOSKELETAL: Osteoarthritic changes both hands VITALS VITALS Vital Signs Date Time Temp Pulse Resp B/P Pulse Ox O2 Delivery O2 Flow Rate FiO2 08/05/16 12:07 74 190/93 08/05/16 11:40 98.2 27 93 Room Air 98.2 LABS Lab: Laboratory Tests Test 08/05/16 11:40 White Blood Count 9.3x10^3/uL (4.0-11.0) Red Blood Count 4.34x10^6/uL (4.30-5.70) Hemoglobin 13.8g/dL (13.0-17.5) Hematocrit 41.1% (39.0-53.0) Mean Corpuscular Volume 95fL (79-100) Mean Corpuscular Hemoglobin 32pg (25-35) Mean Corpuscular Hemoglobin Concent 34g/dL (31-37) Red Cell Distribution Width 14.2% (11.5-14.5) Platelet Count 340x10^3/uL (140-400) Neutrophils (%) (Auto) 72% (31-73) Lymphocytes (%) (Auto) 19% (24-48) Monocytes (%) (Auto) 7% (0-9) Eosinophils (%) (Auto) 1% (0-3) Basophils (%) (Auto) 1% (0-3) Neutrophils # (Auto) 6.7x10^3uL (1.8-7.7) Lymphocytes # (Auto) 1.7x10^3/uL (1.0-4.8) Monocytes # (Auto) 0.7x10^3/uL (0.0-1.1) Eosinophils # (Auto) 0.1x10^3/uL (0.0-0.7) Basophils # (Auto) 0.1x10^3/uL (0.0-0.2) Sodium Level 142mmol/L (136-145) Potassium Level 4.4mmol/L (3.5-5.1) Chloride Level 104mmol/L (98-107) Carbon Dioxide Level 27mmol/L (21-32) Anion Gap 11 (6-14) Blood Urea Nitrogen 22mg/dL (8-26) Creatinine 1.1mg/dL (0.7-1.3) Estimated GFR (Cockcroft-Gault) 66.2 Glucose Level 91mg/dL (70-99) Calcium Level 9.0mg/dL (8.5-10.1) Total Bilirubin 0.6mg/dL (0.2-1.0) Direct Bilirubin 0.1mg/dL (0.0-0.2) Aspartate Amino Transf (AST/SGOT) 21U/L (15-37) Alanine Aminotransferase (ALT/SGPT) 29U/L (16-63) Alkaline Phosphatase 66U/L (46-116) Troponin I Quantitative 1.791ng/mL (0.000-0.055) TW-Kno-O-Type Natriuretic Peptide 1839pg/mL (0-124) Total Protein 8.0g/dL (6.4-8.2) Albumin 3.5g/dL (3.4-5.0) Lipase 252U/L (73-393) ECHOCARDIOGRAM ECHOCARDIOGRAM <Conclusion> The left ventricle is normal size. Left ventricle systolic function is normal. The Ejection Fraction is 50-55%. There is no significant aortic valvular stenosis. Doppler and Color Flow revealed trace aortic regurgitation. Doppler and Color Flow revealed mild mitral regurgitation. Doppler and Color Flow revealed mild tricuspid regurgitation. The PA pressure was estimated at 44 mmHg. DATE: 07/30/16 1624 HEART CATH HEART CATH Conclusion 1. Two-vessel coronary artery disease as described above 2. 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 Aspirin 325 mg daily 2. Plavix 75 mg daily for preferably one year 3. Cardiovascular risk factor modification including smoking cessation 4. Check 2-D echo to assess left ventricle systolic function. DATE: 07/30/16 1232 ASSESSMENT/PLAN ASSESSMENT/PLAN 1. Chest pain 2. Malignant hypertension 3. NSTEMI 4. CAD s/p PCI/HYACINTH to LCx Recommendations Suspect troponin elevation is downward trend from NSTEMI last week where troponin peaked at 50. Continue with series. Continue secondary prevention including DAPT. Chest tightness likely related to malignant hypertension- resolved with BP control Will increase antiHTN therapy. Hydralazine IV PRN. If symptoms return/persist despite BP control or significant further significant troponin elevation noted; could consider repeat cath in am. Recent cath report noted; will add Imdur for vasodilation/prevention of angina. Problems: MARY WAGNER MD 08/05/168: CARDIAC CONSULT ALLERGIES ALLERGIES: Coded Allergies: No Known Drug Allergies (Unverified , 07/29/16) ASSESSMENT/PLAN ASSESSMENT/PLAN Patient seen and examined. Agree with above nurse practitioner note. 8-year-old male well known to our service with recent myocardial infarction and left circumflex stents. On examination he is currently stable. Normal heart tones. Labs and medications reviewed. Suspect pain is related to hypertensive urgency. Will make blood pressure medication changes as noted above. Add low-dose long-acting nitrate. In the past patient was hypotensive and therefore he has not been significantly uptitrated on his medications. We'll monitor closely and anticipate discharge tomorrow if stable otherwise could consider repeat cardiac catheterization although this would be of low utility given his small vessel ischemic disease. Problems: MAXIMUS OTTO APRN Aug 05, 2016 14:37 MARY WAGNER MD Aug 05, 2016 18:18
[2016-08-05 15:00] VITALS: BP 164/87
[2016-08-05] MEDS ORDERED: hydrALAZINE 20 MG/ML VIAL. IVP PRN (15:15)
[2016-08-05] MEDS: ISOSORBIDE MONONITRATE ER 30 MG TAB.ER.24H PO SCH (15:15)
[2016-08-05 16:01] VITALS: BP 114/59
[2016-08-05 18:38] VITALS: BP 164/87
[2016-08-05 19:47] VITALS: BP 129/66
[2016-08-05] MEDS: METOPROLOL TART IMMED RELEASE 25 MG TABLET PO SCH (20:56)
[2016-08-05] MEDS ORDERED: ATORVASTATIN CALCIUM 20 MG TABLET PO SCH (21:00)
[2016-08-05 23:04] VITALS: BP 141/79
[2016-08-06 02:18] VITALS: BP 140/78
[2016-08-06 03:18] LABS: BASO # 0.1 x10^3/uL (0.0-0.2); BASO % 2 % (0-3); EOS % 2 % (0-3); HEMATOCRIT 35.5 % (39.0-53.0); HEMOGLOBIN 11.8 g/dL (13.0-17.5); LYMPH # 1.8 x10^3/uL (1.0-4.8); LYMPH % 24 % (24-48); MEAN CORPUSCULAR HEMOGLOBIN 32 pg (25-35); MEAN CORPUSCULAR HGB CONC 33 g/dL (31-37); MEAN CORPUSCULAR VOLUME 97 fL (79-100); MONO % 9 % (0-9); NEUT % 63 % (31-73); PLATELET COUNT 269 x10^3/uL (140-400); RED BLOOD COUNT 3.67 x10^6/uL (4.30-5.70); RED CELL DISTRIBUTION WIDTH 13.9 % (11.5-14.5); WHITE BLOOD COUNT 7.4 x10^3/uL (4.0-11.0)
[2016-08-06 03:21] LABS: CALCIUM 8.3 mg/dL (8.5-10.1); CREATININE 1.2 mg/dL (0.7-1.3); GFR 59.9; POTASSIUM 3.9 mmol/L (3.5-5.1)
[2016-08-06 07:00] VITALS: BP 145/80
[2016-08-06] MEDS ORDERED: ASPIRIN ENTERIC COATED 325 MG TABLET.DR. PO SCH (08:00)
[2016-08-06] MEDS ORDERED: CLOPIDOGREL BISULFATE 75 MG TABLET PO SCH (08:00)
--- NOTE | 2016-08-06 08:06 | PDOC ---
GENERAL General: see dictated H&P. Problems: VITAL SIGNS Vital Signs: Vital Signs Date Time Temp Pulse Resp B/P Pulse Ox O2 Delivery O2 Flow Rate FiO2 08/06/16 07:00 98.6 58 18 145/80 96 Room Air 98.6 I & O I & O Intake and Output 08/06/16 07:00 Intake Total 1260 ml Output Total 925 ml Balance 335 ml Intake Oral 1260 ml Output Urine Total 925 ml # Voids 1 ALLERGIES Allergies: Allergies Coded Allergies Type Severity Reaction Last Updated Verified No Known Drug Allergies 07/29/16 No MEDS Medications: Current Medications Medications (Trade) Dose Ordered Sig/Michael Start Time Stop Time Status Last Admin Dose Admin Aspirin (Children'S Aspirin) 324 mg 1X ONCE 08/05/16 11:45 08/05/16 11:46 DC 08/05/16 12:02 324 MG Aspirin (Ecotrin) 325 mg DAILYWBKFT 08/06/16 08:00 Atorvastatin Calcium (Lipitor) 20 mg QHS 08/05/16 21:00 08/05/16 20:56 20 MG Clopidogrel Bisulfate (Plavix) 75 mg DAILYWBKFT 08/06/16 08:00 Hydralazine HCl (Apresoline) 10 mg PRN Q4HRS PRN 08/05/16 15:15 Isosorbide Mononitrate (Imdur) 30 mg DAILY 08/05/16 15:15 Labetalol HCl (Normodyne) 20 mg 1X ONCE 08/05/16 12:00 08/05/16 12:01 DC 08/05/16 12:07 20 MG Lisinopril (Prinivil) 10 mg DAILY 08/06/16 09:00 Metoprolol Tartrate (Lopressor) 25 mg BID 08/05/16 21:00 08/05/16 20:56 25 MG Morphine Sulfate 2 mg PRN Q2HR PRN 08/05/16 12:45 08/06/16 12:44 Ondansetron HCl (Zofran) 4 mg PRN Q8HRS PRN 08/05/16 12:45 08/06/16 12:44 LAB Lab: Laboratory Tests Test 08/05/16 11:40 08/05/16 18:45 08/06/16 00:52 White Blood Count 9.3x10^3/uL (4.0-11.0) 7.4x10^3/uL (4.0-11.0) Red Blood Count 4.34x10^6/uL (4.30-5.70) 3.67x10^6/uL (4.30-5.70) Hemoglobin 13.8g/dL (13.0-17.5) 11.8g/dL (13.0-17.5) Hematocrit 41.1% (39.0-53.0) 35.5% (39.0-53.0) Mean Corpuscular Volume 95fL (79-100) 97fL (79-100) Mean Corpuscular Hemoglobin 32pg (25-35) 32pg (25-35) Mean Corpuscular Hemoglobin Concent 34g/dL (31-37) 33g/dL (31-37) Red Cell Distribution Width 14.2% (11.5-14.5) 13.9% (11.5-14.5) Platelet Count 340x10^3/uL (140-400) 269x10^3/uL (140-400) Neutrophils (%) (Auto) 72% (31-73) 63% (31-73) Lymphocytes (%) (Auto) 19% (24-48) 24% (24-48) Monocytes (%) (Auto) 7% (0-9) 9% (0-9) Eosinophils (%) (Auto) 1% (0-3) 2% (0-3) Basophils (%) (Auto) 1% (0-3) 2% (0-3) Neutrophils # (Auto) 6.7x10^3uL (1.8-7.7) 4.7x10^3uL (1.8-7.7) Lymphocytes # (Auto) 1.7x10^3/uL (1.0-4.8) 1.8x10^3/uL (1.0-4.8) Monocytes # (Auto) 0.7x10^3/uL (0.0-1.1) 0.7x10^3/uL (0.0-1.1) Eosinophils # (Auto) 0.1x10^3/uL (0.0-0.7) 0.1x10^3/uL (0.0-0.7) Basophils # (Auto) 0.1x10^3/uL (0.0-0.2) 0.1x10^3/uL (0.0-0.2) Sodium Level 142mmol/L (136-145) 141mmol/L (136-145) Potassium Level 4.4mmol/L (3.5-5.1) 3.9mmol/L (3.5-5.1) Chloride Level 104mmol/L (98-107) 107mmol/L (98-107) Carbon Dioxide Level 27mmol/L (21-32) 25mmol/L (21-32) Anion Gap 11 (6-14) 9 (6-14) Blood Urea Nitrogen 22mg/dL (8-26) 24mg/dL (8-26) Creatinine 1.1mg/dL (0.7-1.3) 1.2mg/dL (0.7-1.3) Estimated GFR (Cockcroft-Gault) 66.2 59.9 Glucose Level 91mg/dL (70-99) 85mg/dL (70-99) Calcium Level 9.0mg/dL (8.5-10.1) 8.3mg/dL (8.5-10.1) Total Bilirubin 0.6mg/dL (0.2-1.0) Direct Bilirubin 0.1mg/dL (0.0-0.2) Aspartate Amino Transf (AST/SGOT) 21U/L (15-37) Alanine Aminotransferase (ALT/SGPT) 29U/L (16-63) Alkaline Phosphatase 66U/L (46-116) Troponin I Quantitative 1.791ng/mL (0.000-0.055) 1.543ng/mL (0.000-0.055) 1.556ng/mL (0.000-0.055) DH-Whr-D-Type Natriuretic Peptide 1839pg/mL (0-124) Total Protein 8.0g/dL (6.4-8.2) Albumin 3.5g/dL (3.4-5.0) Lipase 252U/L (73-393) THIAGO JACKSON MD Aug 06, 2016 08:06
[2016-08-06] MEDS ORDERED: LISINOPRIL 10 MG TABLET PO SCH (09:00)
[2016-08-06] MEDS: ISOSORBIDE MONONITRATE ER 30 MG TAB.ER.24H PO SCH (09:33)
[2016-08-06] MEDS: METOPROLOL TART IMMED RELEASE 25 MG TABLET PO SCH (09:34)
--- NOTE | 2016-08-06 10:40 | HP ---
ADMIT DATE: 08/05/2016 CHIEF COMPLAINT AND HISTORY OF PRESENT ILLNESS: This is a 71-year-old white male who is well known to me from followup in the office. The patient was admitted to the hospital last week with acute NJ with a complete occlusion of the circumflex, which was stented and opened. He has been doing well up until the morning of admission when he had the onset of chest tightness and shortness of breath, presented to the Emergency Room where he had accelerated hypertension and a troponin that was elevated; however, a week prior and most probably still on his way down from a prior MRI. He was admitted with blood pressure control and cardiological evaluation. PAST MEDICAL HISTORY: Remarkable for recent NJ and coronary stenting with complete circumflex occlusion. He has longstanding history of hypertension. PAST SURGICAL HISTORY: There is no other significant past surgical history. SOCIAL HISTORY: He has been a smoker up until last week with the NJ up to 2 packs per day. Drinks more than a regular basis and does not use drugs. He is , lives at home alone. FAMILY HISTORY: Positive for coronary artery disease. MEDICATIONS: Brought with the patient, listed on the computer and have been addressed. ALLERGIES: He has no known drug allergies. REVIEW OF SYSTEMS: As mentioned above. PHYSICAL EXAMINATION: GENERAL: He is a well-developed, well nourished white male in no acute distress. VITAL SIGNS: Stable. He is afebrile. HEAD, EARS, EYES, NOSE AND THROAT: Unremarkable. NECK: Supple, without thyromegaly. CHEST: Clear to auscultation and percussion. HEART: Regular rate and rhythm without S3, S4. He does have a soft 1-2/6 systolic murmur. ABDOMEN: Soft, nontender, without hepatosplenomegaly or masses. EXTREMITIES: Without cyanosis, clubbing or edema. NEUROLOGIC: Intact. Again troponin is elevated at 1.79 on admission. IMPRESSION: Chest pain with accelerated hypertension and recent myocardial infarction and the patient was hypotension. PLAN: The patient has been admitted. Medications will be adjusted for the blood pressure. Cardiology has been asked to see the patient. He will be monitored, managed and treated appropriately. THIAGO JACKSON MD DR: PACO/luke JOB#: [id number] / [id number]
--- NOTE | 2016-08-06 10:49 | PDOC ---
NAYELIBELINDA M HIMS MANAGER 08/06/16 1049: CARDIO Progress Notes Date and Time Date of Service 08/06/2016 Time of Evaluation 1054 Subjective Subjective: No Chest Pain, No shortness of breath, No Palpitations, No Dizziness Vitals Vitals Vital Signs Date Time Temp Pulse Resp B/P Pulse Ox O2 Delivery O2 Flow Rate FiO2 08/06/16 09:34 70 145/80 08/06/16 08:00 Room Air 08/06/16 07:00 98.6 18 96 98.6 Weight Weight [ ] Input and Output Intake and Output Intake and Output 08/06/16 07:00 Intake Total 1260 ml Output Total 925 ml Balance 335 ml Intake Oral 1260 ml Output Urine Total 925 ml # Voids 1 Laboratory Labs Laboratory Tests Test 08/05/16 11:40 08/05/16 18:45 08/06/16 00:52 White Blood Count 9.3x10^3/uL (4.0-11.0) 7.4x10^3/uL (4.0-11.0) Red Blood Count 4.34x10^6/uL (4.30-5.70) 3.67x10^6/uL (4.30-5.70) Hemoglobin 13.8g/dL (13.0-17.5) 11.8g/dL (13.0-17.5) Hematocrit 41.1% (39.0-53.0) 35.5% (39.0-53.0) Mean Corpuscular Volume 95fL (79-100) 97fL (79-100) Mean Corpuscular Hemoglobin 32pg (25-35) 32pg (25-35) Mean Corpuscular Hemoglobin Concent 34g/dL (31-37) 33g/dL (31-37) Red Cell Distribution Width 14.2% (11.5-14.5) 13.9% (11.5-14.5) Platelet Count 340x10^3/uL (140-400) 269x10^3/uL (140-400) Neutrophils (%) (Auto) 72% (31-73) 63% (31-73) Lymphocytes (%) (Auto) 19% (24-48) 24% (24-48) Monocytes (%) (Auto) 7% (0-9) 9% (0-9) Eosinophils (%) (Auto) 1% (0-3) 2% (0-3) Basophils (%) (Auto) 1% (0-3) 2% (0-3) Neutrophils # (Auto) 6.7x10^3uL (1.8-7.7) 4.7x10^3uL (1.8-7.7) Lymphocytes # (Auto) 1.7x10^3/uL (1.0-4.8) 1.8x10^3/uL (1.0-4.8) Monocytes # (Auto) 0.7x10^3/uL (0.0-1.1) 0.7x10^3/uL (0.0-1.1) Eosinophils # (Auto) 0.1x10^3/uL (0.0-0.7) 0.1x10^3/uL (0.0-0.7) Basophils # (Auto) 0.1x10^3/uL (0.0-0.2) 0.1x10^3/uL (0.0-0.2) Sodium Level 142mmol/L (136-145) 141mmol/L (136-145) Potassium Level 4.4mmol/L (3.5-5.1) 3.9mmol/L (3.5-5.1) Chloride Level 104mmol/L (98-107) 107mmol/L (98-107) Carbon Dioxide Level 27mmol/L (21-32) 25mmol/L (21-32) Anion Gap 11 (6-14) 9 (6-14) Blood Urea Nitrogen 22mg/dL (8-26) 24mg/dL (8-26) Creatinine 1.1mg/dL (0.7-1.3) 1.2mg/dL (0.7-1.3) Estimated GFR (Cockcroft-Gault) 66.2 59.9 Glucose Level 91mg/dL (70-99) 85mg/dL (70-99) Calcium Level 9.0mg/dL (8.5-10.1) 8.3mg/dL (8.5-10.1) Total Bilirubin 0.6mg/dL (0.2-1.0) Direct Bilirubin 0.1mg/dL (0.0-0.2) Aspartate Amino Transf (AST/SGOT) 21U/L (15-37) Alanine Aminotransferase (ALT/SGPT) 29U/L (16-63) Alkaline Phosphatase 66U/L (46-116) Troponin I Quantitative 1.791ng/mL (0.000-0.055) 1.543ng/mL (0.000-0.055) 1.556ng/mL (0.000-0.055) XR-Gzv-S-Type Natriuretic Peptide 1839pg/mL (0-124) Total Protein 8.0g/dL (6.4-8.2) Albumin 3.5g/dL (3.4-5.0) Lipase 252U/L (73-393) Physical Exam HEENT: Neck Supple W Full Motion Chest: Symmetric LUNGS: Clear to Auscultation Heart: S1S2, RRR, no murmurs, no jug vein distention, other (tele: SR) Extremities: 2+ Dorsalis Pedis, 2+ Posterior Tibial, No Edema Neurology: alert, oriented, follow commands Assessment Assessment 1. Chest pain now denies having chest or shoulder pain 2. Malignant hypertension now controlled with increase in beta-shanique dosage discussed restricting sodium in diet 3. NSTEMI PCI/HYACINTH to circ troponin continues to trend downward from a peak of 50 on 07/30/2016 agreeable with discharge keep previously schedule appt home bp monitoring and call if consistently > 150 systolic MARY WAGNER MD 08/06/16 1443: CARDIO Progress Notes Plan Plan Patient seen and examined. Agree with above nurse practitioner noted. No acute events overnight. No chest pain. Blood pressure better controlled. Normal cardiac exam. Medication changes to include initiation of Imdur. Follow up with Dr. mccormack as previously scheduled. BELINDA TYLER APRN Aug 06, 2016 10:49 MARY WAGNER MD Aug 06, 2016 14:43
[2016-08-06 11:34] VITALS: BP 110/67
[2016-08-06] MEDS ORDERED: LISI10TA2 PO (11:35)
[2016-08-06] MEDS ORDERED: CLOP75TA PO (11:37)
[2016-08-06] MEDS ORDERED: ISOS30TA17 PO (11:38)
[2016-08-06] MEDS ORDERED: METO25TA4 PO (11:38)
[2016-08-06] MEDS ORDERED: ISOS10TA4 PO (11:39)
[2016-08-06] MEDS ORDERED: ASPI325T70 PO (11:39)
== END 2016-08-06 12:19 | disposition home or self-care (01) | DRG 282 ==
LOC: ER 11:28 → CVICU 12:41
PROVIDERS: ADMIT Family Medicine; ATTEND Family Medicine
DX: I21.4 Non-ST elevation (NSTEMI) myocardial infarction (principal); I10 Essential (primary) hypertension; I25.10 Atherosclerotic heart disease of native coronary artery without angina pectoris; I95.9 Hypotension, unspecified; Z60.2 Problems related to living alone; M10.9 Gout, unspecified; I25.2 Old myocardial infarction; Z82.49 Family history of ischemic heart disease and other diseases of the circulatory system; Z87.891 Personal history of nicotine dependence; Z95.5 Presence of coronary angioplasty implant and graft; Z79.82 Long term (current) use of aspirin; Z79.02 Long term (current) use of antithrombotics/antiplatelets; D64.89 Other specified anemias
CPT/HCPCS: 36415; 71010; 80048; 80076; 83690; 83880; 84484; 85027; 93005; 96374; J3490; 99285-25

== ENCOUNTER → 2018-10-08 | Outpatient (CLI) | payer MEDICARE ==
[2017-06-10 11:00] VITALS: BP 114/50
[~2018-10-08] MED LIST changes: +AMLO5TAB10 PO; -AMLO5TAB2 PO; +APIX5TAB PO; +ASPI325T70 PO; +ATOR20TA58 PO; +CLOP75TA PO; +DILT240C2 PO; +ISOS10TA4 PO; +ISOS30TA19 PO; +LABE200T4 PO; +LISI-130 PO; +LISI10TA2 PO; +METO25TA4 PO; -METO50TA2 PO; +METO50TA6 PO; +PANT40TA5 PO; +RANO500T2 PO; +REGADENOSON 0.4 MG/5 ML DISP.SYRIN. IV ONE
--- NOTE | 2018-10-08 10:10 | CARD ---
MR#: [id number] Date of Study: 10/08/2018 Ordering Physician: TIM KINNEY, Referring Physician: TIM KINNEY Tech: Roseline Vo RDCS APPROVED REPORT EXAM: Two-dimensional and M-mode echocardiogram with Doppler and color Doppler. Other Information Quality : Fair INDICATION Cardiac Disease: CAD 2D DIMENSIONS RVDd3.0 (2.9-3.5cm)Left Atrium(2D)4.3 (1.6-4.0cm) IVSd0.8 (0.7-1.1cm)Aortic Root(2D)3.2 (2.0-3.7cm) LVDd6.8 (3.9-5.9cm)LVOT Diameter2.1 (1.8-2.4cm) PWd0.8 (0.7-1.1cm)LVDs5.5 (2.5-4.0cm) FS (%) 18.6 %SV88.6 ml LVEF(%)37.5 (>50%) Aortic Valve AoV Peak Sergei.149.1cm/sAoV VTI29.7cm AO Peak GR.8.9mmHgLVOT Peak Sergei.114.9cm/s LVOT VTI 26.24cmAO Mean GR.4mmHg DANIKA (VMAX)2.74su2CJA (VTI)3.10cm2 AI P 1/2 Txvo924ut Mitral Valve MV E Dghyhxid11.4cm/sMV DECEL XNTH494ph MV A Ihufkwmf87.9cm/sMV DZL16ky E/A Ratio1.4MVA (PHT)4.04cm2 TDI E/Lateral E'18.8E/Medial E'12.7 Tricuspid Valve TR P. Gmphimla633yt/sRAP SHKIOOXO2llPg TR Peak Gr.28asLyBSWB41gsDs Pulmonary Vein S1 Xyowjikw776.9cm/sD2 Nuvenmmy375.0cm/s LEFT VENTRICLE The Left Ventricle is moderately dilated. There is normal left ventricular wall thickness. Left ventr icle systolic function is low normal. The Ejection Fraction is 50-55%. There is normal LV segmental w all motion. Transmitral Doppler flow pattern is Grade I-abnormal relaxation pattern. RIGHT VENTRICLE The right ventricle is normal size. The right ventricular systolic function is normal. ATRIA The left atrium is mildly dilated. The right atrium size is normal. The interatrial septum is intact with no evidence for an atrial septal defect or patent foramen ovale as noted on 2-D or Doppler imagi ng. AORTIC VALVE The aortic valve is moderately calcified. Doppler and Color Flow revealed mild to moderate aortic reg urgitation. There is no significant aortic valvular stenosis. MITRAL VALVE The mitral valve is calcified but opens well. There is no evidence of mitral valve prolapse. There is no mitral valve stenosis. Doppler and Color-flow revealed mild mitral regurgitation. TRICUSPID VALVE The tricuspid valve is normal in structure and function. Doppler and Color Flow revealed physiologica l tricuspid regurgitation. The PA pressure was estimated at 33 mmHg. There is no tricuspid valve sten osis. PULMONIC VALVE The pulmonic valve is not well visualized. Doppler and Color Flow revealed trace pulmonic valvular re gurgitation. There is no pulmonic valvular stenosis. GREAT VESSELS The aortic root is normal in size. The ascending aorta is moderately dilated at 4.0 cm. The IVC is no rmal in size and collapses >50% with inspiration. PERICARDIAL EFFUSION There is no evidence of significant pericardial effusion. Critical Notification Critical Value: No <Conclusion> Left ventricle systolic function is low normal. The Ejection Fraction is 50-55%. Doppler and Color Flow revealed mild to moderate aortic regurgitation. Doppler and Color Flow revealed physiological tricuspid regurgitation. The PA pressure was estimated at 33 mmHg. The ascending aorta is moderately dilated at 4.0 cm. Signed by : Ad Velasquez, Electronically Approved : 10/08/2018 10:09:51
--- NOTE | 2018-10-08 12:55 | RAD ---
MR#: [id number] Date of Study: 10/08/2018 Ordering Physician: TIM KINNEY Referring Physician: MARIA R GOINS Tech: RT Itzel Jimenez) (N) APPROVED REPORT Test Type: Pharmacological Stress Nurse/Tech: Ying Perkins RN Test Indications: CAD Cardiac History: [place] with stents, HTN Medications: See Electronic Medical Record Medical History: See Electronic Medical Record Resting ECG: SR Resting Heart Rate: 69 bpm Resting Blood Pressure: 174/76mmHg Pretest Chest Pain: None Nurse/Tech Notes Lungs CTA Consent: The procedure was explained to the patient in lay terms. Informed consent was witnessed. Krish eout was entered into [employer]. History and Stress Test performed by Ying Perkins RN Pharm. Details Pharmacologic stress testing was performed using 0.4mg per 5ml of regadenoson given intravenously ove r 7-10 seconds. Stress Symptoms Dyspnea POST EXERCISE Reason for Termination: Infusion complete Max HR: 90 bpm Max Blood Pressure: 170/72mmHg Blood Pressure response to exercise: Normal blood pressure response during stress. Heart Rate response to exercise: Normal response Chest Pain: No. Arrhythmia: No. ST Change: Yes. depression noted in leads V3, V4, V5 INTERPRETATION Stress EKG Conclusion: Baseline EKG showed sinus rhythm. No ischemic changes at peak stress. No arr hythmias. Imaging Protocol IMAGE PROTOCOL: Rest Tc-99m/stress Tc-99m 1 day Rest: Stress: Viability: Radiopharm.Tc99m PajdesqlcSv31g Sestamibi Dose10.6mCi 33mCi Duration 13min. 13min. Img Date 10/08/2018 10/08/2018 Inj-Img Wypj93ifl. 60min. Rest Admin Site:IV - Left AntecubitalAdministrator:RT Itzel Jimenez)(N) Stress Admin Site: IV - Left AntecubitalAdministrator: CH[place] Russell STRESS DATA End Diast. Vol.166.0mlLVEDV index BSA77.0ml End Syst. Vol.77.0mlLVESV index BSA36.0ml Myocardial Pnbz222.0gEject. Bbqjaotb38.0% Stress Scores Regional WT1.00Summed WT10.00 Regional WM0.00Summed WM3.00 LV Perfusion Scintigraphic images showed large fixed defect involving the inferior and inferolateral herrmann and ext ending into the lateral and apical herrmann consistent with previous myocardial infarction without any s ignificant reversibility. Wall Motion Inferoapical wall hypokinesis with ejection fraction calculated at 54%. LV Perf. Quant 17 Seg. SSS21.00 17 Seg. SRS25.00 17 Seg. SDS1.00 Stress Defect Extent (% LAD)10.60Rest Defect Extent (% LAD)11.90Rev. Defect Extent (% LAD)0.00 Stress Defect Extent (% LCX) 71.30Rest Defect Extent (% LCX)63.80Rev. Defect Extent (% LCX)11.30 Stress Defect Extent (% RCA)72.20Rest Defect Extent (% RCA)78.90Rev. Defect Extent (% RCA)0.00 Stress Defect Extent (% DRISS)42.60Rest Defect Extent (% DRISS)42.20Rev. Defect Extent (% DRISS)2.80 Conclusion 1. Regadenoson cardioisotope stress test showed large infarct involving inferior and inferolateral wa lls and extending into the lateral and apical herrmann without any significant ischemia. 2. Inferoapical wall hypokinesis with ejection fraction calculated at 54%. 3. Low risk for cardiac events. Signed by : Tim Kinney, Electronically Approved : 10/08/2018 12:55:07
== END | disposition home or self-care (01) ==
LOC: NM 08:12
PROVIDERS: ATTEND Internal Medicine Cardiovascular Disease
DX: I08.3 Combined rheumatic disorders of mitral, aortic and tricuspid valves (principal); I25.10 Atherosclerotic heart disease of native coronary artery without angina pectoris; I25.2 Old myocardial infarction; I10 Essential (primary) hypertension; Z95.818 Presence of other cardiac implants and grafts
CPT/HCPCS: 78452; 93017; 93306; A9500; J2785